=== PATIENT | male | born 1945 | race Caucasian/White ===

== ENCOUNTER → 2024-02-08 12:10 | Outpatient (REF) | payer MEDICARE, OTHER, SELFPAY ==
[2024-02-08 15:36] LABS: % Basophils 2.3 % (0-2); % Eosinophils 2.4 % (0-6); % Immature Granulocytes 0.3 % (0-0.5); % Lymphocytes 31.4 % (20.5-51.1); % Monocytes 8.5 % (1.7-9.3); % Neutrophils 55.1 % (42.2-75.2); Absolute Basophils 0.2 10^3/uL (0-0.2); Absolute Eosinophils 0.2 10^3/uL (0-0.7); Absolute Lymphocytes 2.5 10^3/uL (1.2-3.4); Absolute Monocytes 0.7 10^3/uL (0.1-0.6); Absolute Neutrophils 4.4 10^3/uL (1.4-6.5); Hematocrit 41.2 % (39.0-52.0); Hemoglobin 14.1 g/dL (13.0-18.0); Mean Corp Hgb Conc. 34.2 g/dL (33.0-37.0); Mean Corpuscular Hgb 32.8 pg (27.0-31.0); Mean Corpuscular Volume 95.8 fL (80.0-94.0); Mean Platelet Volume 12.6 fL (7.4-10.4); Nucleated Red Blood Cells % 0 % (-); Platelet Count 173 10^3/uL (130-400); Red Cell Dist. Width 13.2 % (11.5-14.5)
[2024-02-08 15:49] LABS: ALT (SGPT) 18 U/L (0-50); AST (SGOT) 26 U/L (17-59); Albumin 4.3 g/dl (3.5-5.0); Alkaline Phosphatase 65 U/L (38-126); Blood Urea Nitrogen 14 mg/dl (9-20); Calcium 9.6 mg/dl (8.4-10.2); Carbon Dioxide 27 mmol/L (22-30); Chloride 102 mmol/L (98-107); Glucose 104 mg/dl (70-99); Potassium 4.1 mmol/L (3.5-5.1); Sodium 138 mmol/L (135-145); Total Bilirubin 0.6 mg/dl (0.2-1.3); Total Protein 7.5 g/dl (6.3-8.2); eGFR > 60.00
== END ==
LOC: HWRAD 12:10
PROVIDERS: ATTENDING PHYSICIAN Physician Assistant Medical
DX: R10.9 Unspecified abdominal pain (principal); Z87.442 Personal history of urinary calculi; R68.83 Chills (without fever)
CPT/HCPCS: 36415; 74176; 80053; 85025

== ENCOUNTER → 2024-02-26 11:35 | Outpatient (REF) | payer MEDICARE, OTHER, SELFPAY ==
[2024-02-26 12:12] LABS: % Basophils 1.9 % (0-2); % Eosinophils 1.5 % (0-6); % Immature Granulocytes 0.7 % (0-0.5); % Lymphocytes 27.3 % (20.5-51.1); % Monocytes 10.3 % (1.7-9.3); % Neutrophils 58.3 % (42.2-75.2); Absolute Basophils 0.1 10^3/uL (0-0.2); Absolute Eosinophils 0.1 10^3/uL (0-0.7); Absolute Immature Granulocytes 0.1 10^3/uL (0-0.05); Absolute Lymphocytes 2.1 10^3/uL (1.2-3.4); Absolute Monocytes 0.8 10^3/uL (0.1-0.6); Absolute Neutrophils 4.4 10^3/uL (1.4-6.5); Hematocrit 42.4 % (39.0-52.0); Hemoglobin 14.6 g/dL (13.0-18.0); Mean Corp Hgb Conc. 34.4 g/dL (33.0-37.0); Mean Corpuscular Hgb 32.7 pg (27.0-31.0); Mean Corpuscular Volume 94.9 fL (80.0-94.0); Mean Platelet Volume 11.6 fL (7.4-10.4); Nucleated Red Blood Cells % 0 % (-); Platelet Count 192 10^3/uL (130-400); Red Blood Cell Count 4.47 10^6/uL (4.70-6.10); Red Cell Dist. Width 13.1 % (11.5-14.5); White Blood Cell Count 7.6 10^3/uL (4.8-10.8)
[2024-02-26 13:29] LABS: ALT (SGPT) 22 U/L (0-50); AST (SGOT) 33 U/L (17-59); Albumin 4.4 g/dl (3.5-5.0); Alkaline Phosphatase 65 U/L (38-126); Blood Urea Nitrogen 13 mg/dl (9-20); Calcium 9.5 mg/dl (8.4-10.2); Carbon Dioxide 28 mmol/L (22-30); Chloride 102 mmol/L (98-107); Glucose 89 mg/dl (70-99); Potassium 4.2 mmol/L (3.5-5.1); Sodium 135 mmol/L (135-145); Total Bilirubin 0.5 mg/dl (0.2-1.3); Total Protein 7.6 g/dl (6.3-8.2); eGFR > 60.00
[2024-02-26 13:59] LABS: PSA, Total - Screen 0.19 ng/ml (0.0-4.0)
[2024-02-29 16:43] LABS: Amylase 74 U/L (30-110); Lipase 61 U/L (23-300)
== END ==
LOC: REG 11:35
PROVIDERS: ATTENDING PHYSICIAN Physician Assistant Medical
DX: R10.9 Unspecified abdominal pain (principal); R68.83 Chills (without fever); R10.31 Right lower quadrant pain; R50.9 Fever, unspecified; Z87.438 Personal history of other diseases of male genital organs; R06.02 Shortness of breath; Z12.5 Encounter for screening for malignant neoplasm of prostate
CPT/HCPCS: 36415; 71046; 80053; 82150; 83690; 85025; G0103

== ENCOUNTER → 2024-02-29 11:34 | Outpatient (REF) | payer MEDICARE, OTHER, SELFPAY | LOC: RAD 11:34 | PROVIDERS: ATTENDING PHYSICIAN Physician Assistant Medical | DX: R10.9 Unspecified abdominal pain (principal); R10.31 Right lower quadrant pain; R10.30 Lower abdominal pain, unspecified; M54.50 Low back pain, unspecified; Z87.19 Personal history of other diseases of the digestive system; R50.9 Fever, unspecified | CPT/HCPCS: 74177; Q9967 ==

== ENCOUNTER 2024-05-14 18:42 | Emergency (ER) | payer MEDICARE, OTHER, SELFPAY ==
[2024-05-14 18:43] VITALS: BP 144/70
[2024-05-14] MEDS: TYLENOL 650 MG PO (18:55)
[2024-05-14 19:06] LABS: % Basophils 0.7 % (0-2); % Eosinophils 0.4 % (0-6); % Immature Granulocytes 1.2 % (0-0.5); % Lymphocytes 18.7 % (20.5-51.1); % Monocytes 17.9 % (1.7-9.3); % Neutrophils 61.1 % (42.2-75.2); Absolute Basophils 0.1 10^3/uL (0-0.2); Absolute Immature Granulocytes 0.1 10^3/uL (0-0.05); Absolute Lymphocytes 1.3 10^3/uL (1.2-3.4); Absolute Monocytes 1.2 10^3/uL (0.1-0.6); Absolute Neutrophils 4.2 10^3/uL (1.4-6.5); Hematocrit 38.1 % (39.0-52.0); Hemoglobin 13.9 g/dL (13.0-18.0); Mean Corp Hgb Conc. 36.5 g/dL (33.0-37.0); Mean Corpuscular Hgb 32.1 pg (27.0-31.0); Mean Platelet Volume 11.1 fL (7.4-10.4); Nucleated Red Blood Cells % 0 % (-); Platelet Count 90 10^3/uL (130-400); Red Blood Cell Count 4.33 10^6/uL (4.70-6.10); Red Cell Dist. Width 13.8 % (11.5-14.5); White Blood Cell Count 6.9 10^3/uL (4.8-10.8)
[2024-05-14 19:16] LABS: Lactic Acid 0.9 mmol/L (0.7-2.0)
[2024-05-14 19:21] LABS: ALT (SGPT) 40 U/L (0-50); AST (SGOT) 71 U/L (17-59); Albumin 4.1 g/dl (3.5-5.0); Alkaline Phosphatase 83 U/L (38-126); Blood Urea Nitrogen 16 mg/dl (9-20); Calcium 9.1 mg/dl (8.4-10.2); Carbon Dioxide 23 mmol/L (22-30); Chloride 98 mmol/L (98-107); Glucose 107 mg/dl (70-99); Sodium 130 mmol/L (135-145); Total Bilirubin 1.5 mg/dl (0.2-1.3); Total Protein 7.8 g/dl (6.3-8.2); eGFR > 60.00
[2024-05-14 19:29] LABS: COVID-19 Antigen Negative (Negative)
--- NOTE | 2024-05-14 21:20 | ED.GENMED ---
History of Present Illness
General
Chief Complaint: Fever
Source: patient and spouse
Time Seen by Provider: 05/14/24 21:07
History of Present Illness
History of Present Illness:
79-year-old male presents to the emergency room complaining of fever, facial pain and nasal discharge. Patient has been taking Augmentin without improvement. Patient was sent to the emergency by his primary care provider because he continues to
have a fever and patient has a list of allergies making it difficult for her to change his medication. Patient denies any nausea, vomiting, abdominal pain or urinary symptoms.
Past History
Past History
ED Past Medical History: GERD, HTN, Other (Migraines) and Other (Peptic ulcer disease with GI bleed, diverticulitis); Negative CAD
ED Past Surgical History: Orthopedic and Other (Hernia repair)
Social History
Tobacco: Former smoker
Alcohol: None
Personal:
Family History
Family History: Negative Diabetes
Phy Exam
Physical Exam
Physical Exam:
General: Awake, Alert, Oriented X3. No acute distress.
Vitals: unremarkable
Head: Atraumatic
Eyes: Pupils equal, EOMI
Throat: Airway intact, no exudates
Neck: Trachea midline
Lungs: Clear and equal b/l
Heart: Regular rate, no murmurs
Abd: Soft, Nontender, No pulsatile mass
Neuro nonfocal
Skin: Warm, dry, no rash
Extremities: pulses equal b/l, no edema
Course
Orders/Labs/Results
Orders:
Orders
05/14/24 18:52
Acetaminophen [Tylenol] 650 mg .ROUTE .STK-MED ONE
05/14/24 18:54
Acetaminophen [Tylenol] 650 mg PO NOW STA
05/14/24 18:57
COVID-19 Antigen Urgent
Source: Nasal Swab
Complete Blood Count/With Diff Urgent
Comprehensive Metabolic Panel Urgent
Lactic Acid Q4H
Comment: ON ICE, CANCEL 2ND ORDER IF FIRST LACTIC ACID LEVEL <2
Blood Culture Q30M
GAVINO Source: Blood/Venous
Specimen Description:
Comment: FROM 2 SEPARATE SITES
Influenza A+B Rapid Molecular Urgent
GAVINO Source: Nasal Swab
Specimen Description:
05/14/24 21:19
CR Chest - 2 Views Urgent
Comment:
Reason For Exam: fever, cough
05/14/24 21:43
Urinalysis Reflex To Culture Urgent
Date Specimen was Collected: 05/14/24
Time Specimen was Collected: 21:41
Urine Microscopic Reflex Cult Urgent
05/14/24 22:25
Blood Culture Q30M
GAVINO Source: Blood/Venous
Specimen Description:
Comment: FROM 2 SEPARATE SITES
05/14/24 22:50
0.9% Sodium Chloride 500 ml [Nss] 1,000 ml IV ONCE
05/15/24 00:06
CT Head With Iv Contrast Urgent
Comment:
Reason For Exam: persistent fever, severe headache
CT Sinuses With Iv Contrast Urgent
Comment:
Reason For Exam: persistent fever, severe headache
05/15/24 01:09
Acetaminophen [Tylenol] 650 mg PO NOW STA
Abnormal Lab Results
05/14/24 05/14/24
18:57 21:43
RBC 4.33 L 10^6/uL
(4.70-6.10)
Hct 38.1 L %
(39.0-52.0)
MCH 32.1 H pg
(27.0-31.0)
Plt Count 90 L 10^3/uL
(130-400)
MPV 11.1 H fL
(7.4-10.4)
Abs Immat Gran (auto) 0.1 H 10^3/uL
(0-0.05)
Absolute Monos (auto) 1.2 H 10^3/uL
(0.1-0.6)
Immature Gran % 1.2 H %
(0-0.5)
Lymphocytes % 18.7 L %
(20.5-51.1)
Monocytes % 17.9 H %
(1.7-9.3)
Sodium 130 L mmol/L
(135-145)
Glucose 107 H mg/dl
(70-99)
Total Bilirubin 1.5 H mg/dl
(0.2-1.3)
AST 71 H U/L
(17-59)
Urine Ketones Trace A
(Negative)
Ur Occult Blood Reflex 1+ A
(Negative)
Leukocyte Esterase Rfl Trace A
(Negative)
Urine RBC 3-6 A /HPF
(0-2)
Urine Bacteria (Reflex) Few A
(Negative)
05/14/24 18:57
05/14/24 18:57
Vital Signs
Initial and Last Documented VS:
Initial Vital Signs
Temp Pulse Resp BP Pulse Ox
102.7 F H 92 20 144/70 95
05/14/24 18:43 05/14/24 18:43 05/14/24 18:43 05/14/24 18:43 05/14/24 18:43
Last Documented Vital Signs
Temp Pulse Resp BP Pulse Ox
103.0 F H 88 16 141/62 93
05/15/24 01:08 05/14/24 21:55 05/14/24 21:55 05/14/24 21:55 05/14/24 22:01
MDM/Problems Addressed
Differential Diagnosis Includes:
COVID, influenza, sinusitis, complicated sinusitis with osteomyelitis or other progression
MDM/Problems Addressed:
Patient presents with persistent fever and headache, facial pain. He has been taking Augmentin but has not been improving. Labs show a normal white blood cell count. Chemistries are essentially unremarkable. Urinalysis does not show evidence for
infection. COVID and flu test were negative. Given persistent high fever imaging was obtained not so much to prove the patient had sinusitis but to exclude evidence of extension complication. Patient radiology identifies evidence of sinusitis but
does not see any evidence for bony erosion, cellulitis or other complication. CT of the brain shows no abnormalities. Patient concerned about drug allergies. He is documented allergies are not true medication allergies but perceived adverse
reactions. He associates several antibiotics with having GI bleeding. He has Levaquin listed as an allergy but this caused heart flutter. He has tolerated Cipro in the past. Therefore we will DC his Augmentin and start moxifloxacin.
*Radiology
Radiology exam reviewed: other (Vision radiology report)
*Pulse Oximetry
Patient hypoxic: no
*Critical Care Note
Total Time (30-74mins, 75-104mins- exclusive of procedures): Not Applicable
ED Attending Note
-
Portions of this chart may have been created with voice recognition software.� Occasional wrong word or��sound alike� substitutions may have occurred due to the inherent limitations of voice recognition software.
Discharge Plan
Departure
Patient Disposition: Home (Routine Discharge)
Date of Disposition: 05/15/24
Time of Disposition: 01:29
Patient with high blood pressure during this ER visit?: No
Condition: Good
Discharge Problem:
Acute bacterial sinusitis, Fever
Instructions: Fever, Adult (DC), Sinusitis, Adult ED
Prescriptions:
New
moxifloxacin 400 mg tablet
400 mg PO DAILY 7 Days Qty: 7 0RF
No Action
diltiazem HCl 180 MG capsule,extended release 24hr
180 mg PO DAILY
saw palmetto 450 MG capsule
450 mg PO BID
sucralfate 1 GRAM tablet
1 g PO ACHS
cyanocobalamin (vitamin B-12) 1,000 MCG tablet
1,000 mcg PO DAILY
tramadol 50 MG tablet
50 mg PO Q6HPRN PRN (Reason: PAIN)
acetaminophen [Tylenol Extra Strength] 500 MG tablet
1,000 mg PO Q6HPRN PRN (Reason: PAIN)
esomeprazole magnesium [Nexium] 40 MG capsule,delayed release(DR/EC)
40 mg PO DAILY@0200
albuterol sulfate 1 PUFF HFA aerosol inhaler
2 puff inhalation R Q4HPRN PRN (Reason: ASTHMA)
fluticasone propionate 1 SPRAY spray,suspension
2 spray intranasal DAILY
finasteride 5 MG tablet
5 mg PO DAILY
multivitamin with folic acid [Tab-A-Frank] 1 TABLET tablet
1 tab PO DAILY
levothyroxine [Tirosint] 50 MCG capsule
50 mcg PO DAILY
polyethylene glycol 3350 17 GRAMS powder in packet
17 grams PO DAILYPRN PRN (Reason: constipation) Qty: 1 0RF
ibuprofen 200 MG tablet
400 - 600 mg PO Q6HPRN PRN (Reason: moderate pain) Qty: 1 0RF
ciprofloxacin HCl 250 MG tablet
250 mg PO BID Qty: 19 0RF
Referrals:
Tati Werner PA-C [Family Provider] -
Sandra Rees MD [Active] -
Activity Restrictions/Additional Instructions:
You CT scan shows no complications from sinusitis. We will change your antibiotics to moxifloxin which is similar to cipro which you have tolerated.
Interventions
Interventions:
*Risk Screen - Suicide Last Done: 05/14/24 18:43
*General Assessment Last Done: 05/14/24 18:43
*Neglect/Abuse Screening Last Done: 05/14/24 18:43
ED- Fall Risk Assessment Last Done: 05/14/24 22:01
*ED COVID-19 Vaccine History Last Done: 05/14/24 22:01
ED- Neurological Assessment Last Done: 05/14/24 22:01
ED-Skin Assessment Last Done: 05/14/24 22:01
Discharge Date and Time
Print Language: BRAZILIAN
[2024-05-14 21:55] VITALS: BP 141/62
[2024-05-14 22:01] VITALS: BMI 27.2
[2024-05-14 22:17] LABS: Urine Albumin Trace (Neg - Trace); Urine Bilirubin Negative (Negative); Urine Character Clear (Clear); Urine Color Yellow; Urine Glucose Negative (Negative); Urine Ketone Trace (Negative); Urine Leukocyte Trace (Negative); Urine Nitrite Negative (Negative); Urine Occult Blood 1+ (Negative); Urine Urobilinogen Negative (Neg - 1+)
[2024-05-14 22:30] LABS: Urine Bacteria Few (Negative); Urine White Cell 0-2 /HPF (0-5)
[2024-05-14] MEDS: NSS 1000 IV (22:50)
[2024-05-15] MEDS: TYLENOL 650 MG PO (01:59)
[2024-05-15] MEDS: CIPRO 500 MG PO (02:14)
== END 2024-05-15 02:27 | disposition home or self-care (01) ==
LOC: EMR 18:42
PROVIDERS: Emergency Medicine; EMERGENCY PHYSICIAN Emergency Medicine; FAMILY PHYSICIAN Physician Assistant Medical
DX: J01.90 Acute sinusitis, unspecified (principal); R50.9 Fever, unspecified; R51.9 Headache, unspecified; K21.9 Gastro-esophageal reflux disease without esophagitis; I10 Essential (primary) hypertension; Z87.11 Personal history of peptic ulcer disease; Z11.52 Encounter for screening for COVID-19; Z87.891 Personal history of nicotine dependence
CPT/HCPCS: 99284; 96360; 70460; 70487; 71046; 80053; 81003; 81015; 83605; 85025; 87040; 87502; 87811; Q9967

== ENCOUNTER 2024-05-19 12:21 | Inpatient (IN) | payer MEDICARE, OTHER, SELFPAY ==
[2024-05-17] VITALS (11 sets, daily range): BP systolic 103–144; BP diastolic 47–91; BMI 27.9; BMI 27.7
--- NOTE | 2024-05-17 09:39 | ED.GENMED ---
History of Present Illness
General
Chief Complaint: Fever
Source: patient
Exam Limitations: none
Time Seen by Provider: 05/17/24 09:32
Nursing documentation reviewed up to this point in time: agreed with
History of Present Illness
History of Present Illness:
Patient is an 79-year-old male who presents the ER for evaluation.
Patient was seen here Sunday 3 days ago for evaluation. He had sinus symptoms and initially was taking Augmentin prescribed by family doctor without relief. On Sunday in the ER he had a full workup including blood work COVID flu testing
chest x-ray and a CAT scan of the sinuses. CAT scan did show sinusitis he was discharged on moxifloxacin and Augmentin was stopped. Since then he has not improved. He now however has a lot of abdominal discomfort and urinary burning with
dribbling. He also has left-sided abdominal pain and does have history of diverticulitis. reports he is very weak.
Past History
Past History
ED Past Medical History: GERD, HTN, Other (Migraines) and Other (Peptic ulcer disease with GI bleed, diverticulitis); Negative CAD
ED Past Surgical History: Orthopedic and Other (Hernia repair)
Social History
Tobacco: Former smoker
Alcohol: None
Personal:
Family History
Family History: Negative Diabetes
Review of Systems
Review of Systems
Allergies reviewed?: Yes
Constitutional: Reports fatigue
EENT: Reports no symptoms
Respiratory: Reports no symptoms
Cardiac: Reports no symptoms
ABD/GI: Reports abdominal pain; Denies nausea or vomiting
: Reports dysuria
Musculoskeletal: Reports no symptoms
Skin: Reports no symptoms
Neurological: Reports no symptoms
Psychiatric: Reports no symptoms
Phy Exam
General Physical Exam
General Presentation: no apparent distress
General age: appears stated age
General Skin: warm and dry
General Habitus: normal
General Mental: alert
General Hydration: appears well hydrated
Cardiovascular Exam
Cardiovascular Exam: tachycardia
Pulmonary Exam
Pulmonary Exam: lungs clear and no respiratory distress
Neurological Exam
Neurological Exam: alert and oriented x3
Musculoskeletal Exam
Musculoskeletal Exam: full ROM
Skin Exam
Skin Exam: normal color and warm/dry
Psychiatric Exam
Psychiatric Exam: normal mood/affect
Course
Orders/Labs/Results
Orders:
Orders
05/17/24 09:49
IV Insert/Care/Rem.- Treatment PRN
05/17/24 09:50
CT Abd/Pel (IV only)-DH only Urgent
Comment:
Reason For Exam: left sided abd pain and also uti s/s /fever
05/17/24 10:07
0.9% Sodium Chloride 1000 ml [Nss] 1,000 ml IV BOLUS
Acetaminophen [Tylenol] 650 mg PO NOW STA
05/17/24 10:12
Acetaminophen Urgent
Complete Blood Count/With Diff Urgent
Comprehensive Metabolic Panel Urgent
Lactic Acid Q4H
Comment: CANCEL 2nd LACTIC ACID IF 1st LACTIC ACID IS LESS THAN 2
Blood Culture Q30M
GAVINO Source: Blood/Venous
Specimen Description:
05/17/24 12:06
Urinalysis Reflex To Culture Urgent
Date Specimen was Collected: 05/17/24
Time Specimen was Collected: 10:25
Urine Microscopic Reflex Cult Urgent
Blood Culture Q30M
GAVINO Source: Blood/Venous
Specimen Description:
05/17/24 14:39
Admit/Transfer Patient As Directed
Co-Sign Provider:
Level of Care: Observation services
Assign to:: Medical/Surgical
Physician / Group: Thelma
Diagnosis: hyponatrmia
05/17/24 15:35
Lactic Acid Q4H
Comment: CANCEL 2nd LACTIC ACID IF 1st LACTIC ACID IS LESS THAN 2
05/17/24 16:25
Compression Sleeves [Pneumatic Compression Sleeves] As Directed
Type: Knee high
DX Deep Vein Thrombosis Video Routine
Abnormal Lab Results
05/17/24 05/17/24
10:12 12:06
RBC 3.61 L 10^6/uL
(4.70-6.10)
Hgb 11.4 L g/dL
(13.0-18.0)
Hct 31.3 L %
(39.0-52.0)
MCH 31.6 H pg
(27.0-31.0)
Plt Count 75 L 10^3/uL
(130-400)
MPV 12.2 H fL
(7.4-10.4)
Abs Immat Gran (auto) 0.1 H 10^3/uL
(0-0.05)
Absolute Lymphs (auto) 0.9 L 10^3/uL
(1.2-3.4)
Absolute Monos (auto) 0.9 H 10^3/uL
(0.1-0.6)
Immature Gran % 1.0 H %
(0-0.5)
Lymphocytes % 18.1 L %
(20.5-51.1)
Monocytes % 17.7 H %
(1.7-9.3)
Sodium 128 L mmol/L
(135-145)
Carbon Dioxide 20 L mmol/L
(22-30)
Glucose 188 H mg/dl
(70-99)
Lactic Acid 2.1 H mmol/L
(0.7-2.0)
Total Bilirubin 1.6 H mg/dl
(0.2-1.3)
AST 132 H U/L
(17-59)
ALT 74 H U/L
(0-50)
Albumin 3.2 L g/dl
(3.5-5.0)
Ur Occult Blood Reflex 2+ A
(Negative)
Acetaminophen < 10 L ug/ml
(10-30)
05/17/24 10:12
05/17/24 10:12
Vital Signs
Initial and Last Documented VS:
Initial Vital Signs
Temp
99.5 F
05/17/24 09:24
Last Documented Vital Signs
Temp Pulse Resp BP Pulse Ox
102.9 F H 96 18 129/63 94
05/18/24 22:57 05/18/24 22:57 05/18/24 22:57 05/18/24 22:57 05/18/24 22:57
MDM/Problems Addressed
MDM/Problems Addressed:
Patient is an 79-year-old male who has been on antibiotics for sinus infection. He was initially placed on Augmentin and was seen here in the ER May 14 had sinus CAT scan and antibiotic was switched to moxifloxacin. He continues to have fever and
now feels weak. He now feels some burning with urination. Patient did arrive with a temp of 101.9 was mildly tachycardic. He has a normal white count lactic 2.1. I did review CAT scan from May 14 with does show moderate sinusitis. With
complaints now of burning with urination urinalysis was done and unremarkable. CAT scan of abdomen was also ordered to check for other source of infection. no obvious source of infection or obvious findings on CAT scan. LFTs minimally elevated.
Patient febrile however with a normal white count low platelets low sodium. will require admission for further work up of s/s/fever/weakness.
*Radiology
Radiology exam reviewed: radiology read reviewed
*Pulse Oximetry
Patient hypoxic: no
*Critical Care Note
Total Time (30-74mins, 75-104mins- exclusive of procedures): Not Applicable
ED Attending Note
-
Portions of this chart may have been created with voice recognition software.� Occasional wrong word or��sound alike� substitutions may have occurred due to the inherent limitations of voice recognition software.
Discharge Plan
Departure
Patient Disposition: Admit
Date of Disposition: 05/17/24
Time of Disposition: 13:35
Admit to: Med/Surg
Admit to doctor: hospitalist
Presentation/result/management discussed w/ accepting MD/DO: Hospitalist
Patient with high blood pressure during this ER visit?: No
Condition: Fair
Covid-19: Not Applicable
Discharge Problem:
Fever, Acute hyponatremia, Sinusitis
Interventions
Interventions:
*Risk Screen - Suicide Last Done: 05/17/24 16:21
*General Assessment Last Done: 05/17/24 10:30
*Neglect/Abuse Screening Last Done: 05/17/24 10:30
*ED COVID-19 Vaccine History Last Done: 05/17/24 16:21
*Nursing Disposition Last Done: 05/17/24 16:21
ED- Neurological Assessment Last Done: 05/17/24 10:30
ED-Skin Assessment Last Done: 05/17/24 10:30
Discharge Date and Time
Discharge Date/Time: 05/17/24 16:22
[2024-05-17] MEDS: NSS 1000 IV ×4 (10:19→22:25)
[2024-05-17] MEDS: TYLENOL 650 MG PO ×3 (10:21→23:53)
[2024-05-17 10:28] LABS: % Basophils 0.6 % (0-2); % Eosinophils 0.2 % (0-6); % Lymphocytes 18.1 % (20.5-51.1); % Monocytes 17.7 % (1.7-9.3); % Neutrophils 62.4 % (42.2-75.2); Absolute Immature Granulocytes 0.1 10^3/uL (0-0.05); Absolute Lymphocytes 0.9 10^3/uL (1.2-3.4); Absolute Monocytes 0.9 10^3/uL (0.1-0.6); Absolute Neutrophils 3.1 10^3/uL (1.4-6.5); Hematocrit 31.3 % (39.0-52.0); Hemoglobin 11.4 g/dL (13.0-18.0); Mean Corp Hgb Conc. 36.4 g/dL (33.0-37.0); Mean Corpuscular Hgb 31.6 pg (27.0-31.0); Mean Corpuscular Volume 86.7 fL (80.0-94.0); Mean Platelet Volume 12.2 fL (7.4-10.4); Nucleated Red Blood Cells % 0 % (-); Platelet Count 75 10^3/uL (130-400); Red Blood Cell Count 3.61 10^6/uL (4.70-6.10); Red Cell Dist. Width 14.2 % (11.5-14.5)
[2024-05-17 10:37] LABS: Lactic Acid 2.1 mmol/L (0.7-2.0)
[2024-05-17 11:01] LABS: ALT (SGPT) 74 U/L (0-50); AST (SGOT) 132 U/L (17-59); Albumin 3.2 g/dl (3.5-5.0); Alkaline Phosphatase 76 U/L (38-126); Blood Urea Nitrogen 13 mg/dl (9-20); Calcium 8.4 mg/dl (8.4-10.2); Carbon Dioxide 20 mmol/L (22-30); Chloride 101 mmol/L (98-107); Glucose 188 mg/dl (70-99); Potassium 3.8 mmol/L (3.5-5.1); Sodium 128 mmol/L (135-145); Total Bilirubin 1.6 mg/dl (0.2-1.3); Total Protein 6.6 g/dl (6.3-8.2); eGFR > 60.00
[2024-05-17 12:39] LABS: Urine Albumin Trace (Neg - Trace); Urine Bilirubin Negative (Negative); Urine Character Clear (Clear); Urine Color Yellow; Urine Glucose Negative (Negative); Urine Ketone Negative (Negative); Urine Leukocyte Negative (Negative); Urine Nitrite Negative (Negative); Urine Occult Blood 2+ (Negative); Urine Urobilinogen Negative (Neg - 1+)
[2024-05-17 12:52] LABS: Urine Red Blood Cell 0-2 /HPF (0-2)
[2024-05-17 12:53] LABS: Urine Hyaline Cast 0-2 /LPF (0-2); Urine Squamous Cell 0-2 /LPF (Few)
--- NOTE | 2024-05-17 15:39 | HPS.HSE ---
Family Physician
-
Family Physician: Tati Werner
Chief Complaint
-
Fever, chill and cough
History of Present Illness
79-year-old male with history of hypertension, returned back to the ER as she was here on May 14 for the same symptoms he been complaining about facial pain and pressure and purulent nasal discharge since last Sunday, he was diagnosed with
sinusitis and the different sinuses, and discharged on amoxicillin eventually change on moxifloxacin without much relief.
Admitted symptoms continued to get worse and having more frequent fever and chills and associated with dry cough,, however reported, had couple loose stool 2 days ago which is resolved also complaining of dysuria without any hematuria.
Denies weakness or numbness in extremity, although feels weak and lousy and lethargic
Admits poor appetite, also complains of upper abdominal pain worse with coughing.
Is lethargic in the ER was oriented x 3 hold appropriate conversation, his at the bedside in the ER the temperature is 101. Lactic acid 2.1.
LFTs mildly elevated he admitted is been taking Tylenol regularly.
Denies sick contacts or recent travel.
Resume IV fluid in ER.
Medical History
Past Medical History
Past Medical History: Reports Other
Past Surgical History: Reports Other
Additional Past Surgical History:
Past medical history reviewed:
NSAID use peptic ulcer disease and GI bleed
Asthma
Diverticulitis
Chronic back pain
Hypertension
Asthma
Surgical history:
Right inguinal hernia repair
Lower back surgery
Sinus surgery in May 1996
Colonoscopy
EGD and stomach biopsy
Laparoscopic cholecystectomy
Social history: lives with the independently, denies smoking or alcohol use.
Family history: Reviewed and noncontributory
Social History
Unable to obtain full social history at this time due to: Other
Family History
Family History: Other
Allergies / Home Medications
Allergies reflects when Allergies were last updated in [facility].
Home Medications with original date entered in [facility]
Allergy/Medication List:
Allergies
Allergy/AdvReac Type Severity Reaction Status Date / Time
cefaclor [From Ceclor] Allergy GIB,ARM Verified 05/17/24 09:26
PAIN
levofloxacin [From Levaquin] Allergy 'HEART Verified 05/17/24 09:26
FLUTTERS'
loracarbef [From Lorabid] Allergy GIB,ARM Verified 05/17/24 09:26
PAIN
tetracycline [Tetracycline] Allergy GIB,ARM Verified 05/17/24 09:26
PAIN
levothyroxine sodium AdvReac GI UPSET Verified 05/17/24 09:26
[From Synthroid]
meperidine HCl [From Demerol] AdvReac VOMITING Verified 05/17/24 09:26
Home Medications
diltiazem HCl 180 mg capsule,extended release 24 hr 180 mg PO DAILY 08/17/12
saw palmetto 450 mg capsule 450 mg PO DAILY 08/25/16
acetaminophen 500 mg tablet (Tylenol Extra Strength) 1,000 mg PO Q6HPRN PRN mild pain 12/14/20
albuterol sulfate 90 mcg/actuation aerosol inhaler 2 puff inhalation R Q4HPRN PRN sob/wheezing 12/14/20
cyanocobalamin (vitamin B-12) 1,000 mcg tablet 1,000 mcg PO DAILY 12/14/20
finasteride 5 mg tablet 5 mg PO DAILY 12/14/20
fluticasone propionate 50 mcg/actuation nasal spray,suspension 2 spray intranasal DAILY 12/14/20
multivitamin with folic acid 400 mcg tablet (Tab-A-Frank) 1 tab PO DAILY 12/14/20
sucralfate 1 gram tablet 1 g PO ACHSPRN PRN stomach issues/when on antibiotics 12/14/20
levothyroxine 88 mcg capsule (Tirosint) 88 mcg PO DAILY 05/17/24
moxifloxacin 400 mg tablet 400 mg PO DAILY@1330 05/17/24
pantoprazole 40 mg tablet,delayed release 40 mg PO DAILY 05/17/24
Review of Systems
-
A 12 point ROS was completed and negative except as noted: Yes
Physical Exam
Vital Signs
Vital Signs
Temp Pulse Resp BP Pulse Ox
103 F H 96 17 141/71 96
05/17/24 15:38 05/17/24 15:15 05/17/24 15:15 05/17/24 15:00 05/17/24 14:00
Physical exam:
General: Awake, alert and oriented x3, lethargic and tired looking, not in distress and holds appropriate conversation.
HEENT: Facial tenderness appreciated no active discharge, ecchymosis or bruising, moist lips, tongue and mucous membrane.
Eyes: No discharge or red conjunctiva, no nystagmus, pupils are reactive and equal
Neck:Supple, no JVD no bruit no goiter.
Respiratory: Normal AP contour and diameter, normal chest wall movement, normal respiratory effort, no respiratory distress,
Lungs: Good air entry bilaterally, no wheezing or rhonchi, no rales or crackles
Heart: S1, S2 regular, normal rate, no added sound.
Gastrointestinal: Positive bowel sounds, soft, nontender, no guarding or rigidity or organomegaly
Musculoskeletal: , no chest wall abnormality or tenderness. All joints and extremities have good range of motion, no muscle tenderness or any joint swelling or tenderness.
Extremities: No pitting edema, good peripheral pulses, good range of motion
Skin: Warm and dry, no ulceration, normal color.
Neurological: Awake, alert and oriented x3, normal mentation,, speech clear and comprehensive, good muscle tone, normal sensory and motor function
Psychiatric: Normal mood, normal thought and judgment, normal affect,
Physical Exam
General: Other
Laboratory Results
-
05/17/24 10:12
05/17/24 10:12
Laboratory Results
Lactic Acid 2.1 mmol/L (0.7-2.0) H 05/17/24 10:12
Total Bilirubin 1.6 mg/dl (0.2-1.3) H 05/17/24 10:12
AST 132 U/L (17-59) H 05/17/24 10:12
ALT 74 U/L (0-50) H 05/17/24 10:12
Alkaline Phosphatase 76 U/L (38-126) 05/17/24 10:12
CT abdominal pelvis:
Thin linear density within the anterior aspect of the visualized right lower lobe of the lung, compatible with linear scarring or atelectasis.
No evidence for urinary tract calculi.
Right renal cysts are present.
Status post cholecystectomy with no evidence for biliary ductal dilation.
Two stable small low-density hepatic lesions, compatible with cysts or hemangiomas.
Colonic diverticula with no convincing CT evidence for diverticulitis. No evidence for bowel obstruction or free intraperitoneal air.
Bony degenerative changes as described.
Data Reviewed
-
CT Scan: Report Reviewed by me, Discussed with Patient and Discussed with Family
Lab Data: Labs Reviewed by me, Discussed with Patient and Discussed with Family
Old Records: Reviewed
Impression/Plan
-
IMPRESSION:
79-year-old male presented to the hospital for the second time in 3 days still complaining of the facial pain with nasal discharge now cough and congestion and fever he was diagnosed and treated on May 17 here in the ER with sinusitis despite
giving amoxicillin then changed to moxifloxacin 1 he has not much improvement overall feels better.
Acute sepsis: Temperature as high as 101 and lactic acidosis and encephalopathy, sinusitis versus progression to pneumonia while other causes may need to be considered including viral hepatitis but unlikely.
Concern for pneumonia
Sinusitis with a felt outpatient treatment
Elevated LFTs, possible Tylenol and sepsis related while final pathology panel could be possible, CT abdomen pelvis showed no acute abnormality status postcholecystectomy.
Hyponatremia
Mild protein caloric malnutrition albumin is 3.2
Dysuria likely secondary to prostatism his UA is clean and there is no hematuria
Hypertension
History of peptic ulcer disease in the past
PLAN:
All managed per sepsis protocol
Blood culture collected
Get a chest x-ray to complete the workup
Cover the broad-spectrum embolic with vancomycin and Zosyn for now antibiotic could be de-escalated according to finding
If not improvement still symptomatic then consider ID consult and I will repeat sinus CT and may need ENT accordingly.
Monitor vital sign
Give another liter of fluid over 2 hours continue normal saline 100 mill per hour
Because of the elevated LFT I will develop otitis panel to rule out hepatitis,
Repeat LFT
Will give him Tylenol every 6 hours as needed and I will get a Tylenol level it was elevated. Tylenol
Fortunately because of the fever we need antipyretic such as Tylenol 650 every 6 hours and I will add Toradol IV try to avoid oral NSAIDs because of history of peptic ulcer disease in the past
Continue PPI
Close monitoring for any signs symptom of ulcer or GI bleed.
All discussed with the patient and the in detail expressed understanding
CODE STATUS full code
DVT prophylaxis Lovenox
[2024-05-17] MEDS: TORADOL 15 MG IV (15:41)
[2024-05-17 15:50] LABS: Lactic Acid 1.1 mmol/L (0.7-2.0)
[2024-05-17 17:03] LABS: Acetaminophen < 10 ug/ml (10-30)
[2024-05-17] MEDS: ProAIR HFA INHALER 2 PUFF INH (17:24)
[2024-05-17] MEDS: ZOSYN 50 IV ×2 (17:26→22:08)
[2024-05-17] MEDS: LOVENOX 40 MG SC (17:27)
[2024-05-17] MEDS: VANCOCIN 540 MG IV (17:33)
--- NOTE | 2024-05-17 20:00 | PTCARENOTE ---
Pt. admitted from E.D., AAO x 3, IVF's and antibiotics infusing, pt. having temps, treated with Tylenol, call santoyo within reach.
--- NOTE | 2024-05-17 22:40 | PTCARENOTE ---
Pt. has temp 101.2, chilly, rigors, gave multiple warm blankets, Tylenol not due yet, will give when due.
--- NOTE | 2024-05-17 23:14 | PHA.VAN.IN ---
Assessment
- Assessment
Renal Function: Appears similar to baseline
Maximum Temperature: 103F
Concomitant Antimicrobials: Piperacillin/tazobactam
AUC Dosing Plan
- Dosing Variables
Dosing Weight (kg): 82.7
Dosing CrCl (ml/min): 63
Vd coefficient (L/kg): 0.7
- Empiric Dosing
Initial / Loading Dose: Vancomycin 2000mg given 05/17 at 1730
Maintenance Regimen: Vancomycin 750mg IV Q12h
Estimated AUC (mcg*h/mL): 470
Estimated Peak (mcg*h/mL): 26.3
Estimated Trough (mcg/ml): 14.1
Estimated Half Life (H): 12.2
- Monitoring
No levels ordered at this time: Will order levels prior to steady state.
MRSA Screen: Ordered per protocol
Pharmacokinetics Vancomycin I
- -
Patient Age: 79
Patient Sex: Male
Vancomycin Day #: 1
Indication: Pulmonary/Respiratory
Requesting Provider: Dr. Renee
Pertinent Antimicrobial Allergies:
cefaclor [From Ceclor] Allergy (Verified 05/17/24 09:26)
GIB,ARM PAIN
levofloxacin [From Levaquin] Allergy (Verified 05/17/24 09:26)
'HEART FLUTTERS'
loracarbef [From Lorabid] Allergy (Verified 05/17/24 09:26)
GIB,ARM PAIN
tetracycline [Tetracycline] Allergy (Verified 05/17/24 09:26)
GIB,ARM PAIN
Height / Weight:
Height 5 ft 8 in
Actual Weight 82.735 kg
Pertinent Past Medical History: Pt took amoxicillin and moxifloxacin [employer].
- Vital Signs / Lab Results
Temp Pulse Resp BP Pulse Ox
101.2 F H 101 16 140/66 96
05/17/24 22:35 05/17/24 22:35 05/17/24 22:35 05/17/24 22:35 05/17/24 22:35
Lab Results - Hematology
05/17/24
10:12
WBC 5.0
Lab Results - Chemistry
05/17/24
10:12
BUN 13
Creatinine 0.9
Albumin 3.2 L
05/17/24 05/17/24 05/17/24
10:12 15:35 16:25
Lactic Acid 2.1 H 1.1 Cancelled
05/17/24
20:25
Lactic Acid Cancelled
Lab Results - Urine
05/17/24
12:06
Urine Nitrite (Reflex) Negative
Leukocyte Esterase Rfl Negative
Urine WBC (Reflex) 3-5
Ur Squamous Epith Cells 0-2
[2024-05-18 01:50] LABS: Lactic Acid 0.9 mmol/L (0.7-2.0)
[2024-05-18] MEDS: ZOSYN 50 IV ×4 (04:17→21:25)
[2024-05-18] MEDS: VANCOCIN 150 IV ×2 (05:18→17:29)
[2024-05-18] MEDS: NON-FORMULARY ITEM 88 MCG PO (06:02)
[2024-05-18 06:56] LABS: Hematocrit 31.7 % (39.0-52.0); Hemoglobin 11.1 g/dL (13.0-18.0); Mean Corpuscular Hgb 31.7 pg (27.0-31.0); Mean Corpuscular Volume 90.6 fL (80.0-94.0); Red Cell Dist. Width 14.5 % (11.5-14.5); White Blood Cell Count 4.9 10^3/uL (4.8-10.8)
[2024-05-18 07:03] LABS: Lactic Acid 1.5 mmol/L (0.7-2.0)
[2024-05-18 07:06] VITALS: BP 130/61
[2024-05-18 07:20] LABS: ALT (SGPT) 102 U/L (0-50); AST (SGOT) 164 U/L (17-59); Alkaline Phosphatase 92 U/L (38-126); Blood Urea Nitrogen 14 mg/dl (9-20); Calcium 7.9 mg/dl (8.4-10.2); Carbon Dioxide 22 mmol/L (22-30); Chloride 105 mmol/L (98-107); Estimated Creatinine Clearance 57 ml/min; Glucose 102 mg/dl (70-99); Sodium 133 mmol/L (135-145); Total Bilirubin 2.2 mg/dl (0.2-1.3); Total Protein 6.5 g/dl (6.3-8.2); eGFR > 60.00
[2024-05-18 07:26] LABS: Potassium 3.7 mmol/L (3.5-5.1)
[2024-05-18] MEDS: CARDIZEM CD 180 MG PO (08:49)
[2024-05-18] MEDS: PROTONIX 40 MG PO (08:49)
[2024-05-18] MEDS: PROSCAR 5 MG PO (08:50)
[2024-05-18] MEDS: NON-FORMULARY ITEM 1 SPRAY NASAL (08:51)
--- NOTE | 2024-05-18 09:43 | PHA.VAN.FU ---
Vancomycin Assessment / Plan
- Assessment
Renal Function: Stable
WBC's are: Stable
In the past 24 hrs, patient has been: Febrile (101.8 - 05/18)
Concomitant Antimicrobials: piperacillin/tazobactam
- Dosing Plan
Continue: vanc 750 mg q12h - first dose 05/18 0600 after 2000 mg LD 05/17
- Monitoring Plan
No level(s) ordered at this time: consider levels when pt nears steady state ( after 4th dose - richard dose 05/19)
- Follow Up
Pharmacy will continue to follow.
Vancomycin Follow UP
- -
Patient Age: 79
Patient Sex: Male
Vancomycin Day #: 2
Indication: Pulmonary/Respiratory
Requesting Provider: Dr. Renee
Pertinent Antimicrobial Allergies:
cefaclor [From Ceclor] Allergy (Verified 05/17/24 09:26)
GIB,ARM PAIN
levofloxacin [From Levaquin] Allergy (Verified 05/17/24 09:26)
'HEART FLUTTERS'
loracarbef [From Lorabid] Allergy (Verified 05/17/24 09:26)
GIB,ARM PAIN
tetracycline [Tetracycline] Allergy (Verified 05/17/24 09:26)
GIB,ARM PAIN
Height / Weight:
Height 5 ft 8 in
Actual Weight 82.735 kg
Pertinent Past Medical History: Pt took amoxicillin and moxifloxacin [employer].
- Vital Signs / Lab Results
Temp Pulse Resp BP Pulse Ox
101.8 F H 89 16 130/61 95
05/18/24 07:06 05/18/24 07:06 05/18/24 07:06 05/18/24 07:06 05/18/24 07:06
Lab Results - Hematology
05/17/24 05/18/24
10:12 06:24
WBC 5.0 4.9
Lab Results - Chemistry
05/17/24 05/18/24
10:12 06:24
BUN 13 14
Creatinine 0.9 1.0
Estimated Creat Clear 57
Albumin 3.2 L 3.0 L
05/17/24 05/17/24 05/17/24
10:12 15:35 16:25
Lactic Acid 2.1 H 1.1 Cancelled
05/17/24 05/18/24 05/18/24
20:25 01:27 06:24
Lactic Acid Cancelled 0.9 1.5
Lab Results - Urine
05/17/24
12:06
Urine Nitrite (Reflex) Negative
Leukocyte Esterase Rfl Negative
Ur Squamous Epith Cells 0-2
[2024-05-18 09:55] LABS: Platelet Count 59 10^3/uL (130-400)
[2024-05-18 09:56] LABS: Mean Platelet Volume 12.1 fL (7.4-10.4)
[2024-05-18 09:59] LABS: Absolute Neutrophils -Man Diff 2.7 10^3/uL (1.4-6.5); Atypical Lymphocytes 5 %; Band Neutrophils 0 % (0-3); Lymphocytes 35 % (20-51); Monocytes 3 % (2-9); Segmented Neutrophils 56 % (42-75)
[2024-05-18 10:01] LABS: Normal RBC Morphology No; Platelets Checked YES
[2024-05-18 10:02] LABS: Hypochromasia Slight; Nucleated Red Blood Cells 1 (-)
[2024-05-18 10:08] LABS: Total Cells Counted 100
[2024-05-18] MEDS: TYLENOL 650 MG PO ×3 (10:55→22:36)
--- NOTE | 2024-05-18 10:58 | W.PN.HOSP.TC ---
Today's Communication/Plan
-
ENT consult
ID consult
Assessment / Plan
Assessment / Plan
Gen-AAOx3, NAD
HEENT-NC, AT, anicteric, clear oral mm
Neck-supple
CV-reg, no M, +S1/S2
Lungs-clear B/L
Abd-soft, NT, ND
Ext-no edema
Musculoskeletal-no cyanosis, clubbing
Skin-warm and dry
Neuro-grossly non-focal
Psych-calm, cooperative
Sepsis -due to acute bilateral sinusitis. Ongoing fevers despite antibiotic therapy. Consult ENT given history of ENT surgery in the past, concern for anatomic obstruction. CT of the sinuses noted, moderate bilateral frontal and ethmoid and mild
bilateral maxillary sinusitis despite bilateral medial antrostomies. Consult ID. Currently on IV Zosyn, vancomycin.
No evidence of pneumonia. Chest x-ray clear.
Dysuria -with unremarkable urinalysis. Suspect due to prostatic disease, BPH. Did not tolerate tamsulosin reportedly in the past. On Proscar therapy. Will need outpatient follow-up with urology.
Hyponatremia -improving, 133.
Elevated LFTs -unclear if related to acetaminophen overuse versus other causes. Viral hepatitis panel pending. Check GGT, LDH, direct bilirubin.
Acute thrombocytopenia -unclear if due to sepsis versus other causes. Monitor for now.
Acute normocytic anemia -possibly due to acute illness, sepsis. Monitor for now. No evidence of bleeding.
Essential hypertension -stable.
Asthma -unknown severity. Stable.
Hypothyroidism -continue levothyroxine.
Full code
Anticipated Discharge: > 48 hours
Subjective/Interval History
-
Date of Service: May 18, 2024
Patient seen and examined. Complaining of fever this morning.
Objective Data
-
Labs:
Laboratory Results
05/18/24
06:24
WBC 4.9
Hgb 11.1 L
Hct 31.7 L
Plt Count 59 L D
Sodium 133 L
Potassium 3.7
Chloride 105
Carbon Dioxide 22
BUN 14
Creatinine 1.0
Glucose 102 H
Calcium 7.9 L
Total Bilirubin 2.2 H
AST 164 H
ALT 102 H
Alkaline Phosphatase 92
Vital Signs:
Vital Signs
Temp Pulse Resp BP Pulse Ox
100.2 F 89 16 130/61 95
05/18/24 10:44 05/18/24 07:06 05/18/24 07:06 05/18/24 07:06 05/18/24 07:06
I&O
05/17/24 05/18/24 05/19/24
06:59 06:59 06:59
Intake Total 2870 / 2870
Output Total 1500 / 1500
Balance 1370 / 1370
Review of Systems
-
History Source: Patient
All other systems: Reviewed and negative
[2024-05-18] MEDS: MIRALAX 17 GRAMS PO (11:23)
[2024-05-18 12:12] LABS: Direct Bilirubin 0.8 mg/dl (0.0-0.4)
[2024-05-18 12:31] LABS: GGTP 60 U/L (15-73); LDH 666 U/L (120-246)
--- NOTE | 2024-05-18 13:10 | CON.ID ---
Consultation
-
Date/Time Consultation Requested: May 18, 2024 1057
Date/Time Consultation Performed: May 18, 2024 1320
Requesting Provider: Dr. David Irwin
Performing Provider: Dr. Ju Camarillo
Reason for Consultation: Severe sinusitis
Chief Complaint / Past History
Chief Complaint
Persistent fevers and sinus pain
History of Present Illness
History obtained from the patient as well as from his at bedside. He is an 79-year-old male with history of hypertension, recurrent sinusitis, remote history of sinus surgery who started feeling unwell on May 09 when his sinus pain
preceded by multiple sneezing from allergies. He took left over Augmentin the next day . HE saw his PCP on 05/12 who prescribed more Augmentin. 05/13 he had significant nose bleed with clots. 05/14 he developed fever up to 103 and presented to the ED.
T=102.7. plt 90. LFT's mildly elevated. COVID/Flu negative. CXR neg. Sinus CT: moderate bilateral frontal, ethmoid, mild maxillary sinusitis. He wanted to go home and therefore dc'd on moxifloxacin. 05/15 had another episode of epistaxis. He
continues to have fevers. He felt very weak. He came back to ED 05/17. Started on Vanco/Zosyn. Bcx neg to date. Pt now thrombocytopenic. Pt reports no further nose bleed. Sinus pain somewhat better. Continues to have fevers/chills and weakness. Had
trouble urinating at home, Ucx neg. No diarrhea. Per he has sinus infection about twice a year with good response to Augmentin. [place] in [place]. + mosquitoes and insects in campgrounds. He
has not pulled any ticks from himself. He does not use insect repellant. No ill contacts. No recent travel history.
Past History
Additional Past Medical History:
HTN
Hypothyroidism
BPH
Diverticulitis
Asthma
Recurrent sinusitis
Sinus surgery x2 1995
lap swapna
Right inguinal hernia repair
Chronic back pain
Lumbar surgery
Allergy History:
cefaclor [From Ceclor] Allergy (Verified 05/17/24 09:26)
GIB,ARM PAIN; tolerated cephalexin
levofloxacin [From Levaquin] Allergy (Verified 05/17/24 09:26)
'HEART FLUTTERS'
loracarbef [From Lorabid] Allergy (Verified 05/17/24 09:26)
GI upset,ARM PAIN, hand bleeding
tetracycline [Tetracycline] Allergy (Verified 05/17/24 09:26)
swelling; joint pain 1961
levothyroxine sodium [From Synthroid] Adverse Reaction (Verified 05/17/24 09:26)
GI UPSET
meperidine HCl [From Demerol] Adverse Reaction (Verified 05/17/24 09:26)
VOMITING
Medications Reviewed: Yes
Current Antibiotics:
Zosyn
Vancomycin
Social History
Tobacco: Non-Smoker
Alcohol: None
Drug: None
Personal:
Living: With Family
Family History
Family History: Not Pertinent
Review of Systems
Review of Systems
General: Fever, Chills and Change in Appetite
HEENT: Sinus Problems; Negative Pharyngitis
Cardiovascular: Negative Chest Pain or Dyspnea
Respiratory: Negative Dyspnea or Cough
Gasteroenterology: Other (no diarrhea); Negative Nausea or Vomiting
Genital / Urological: Negative Dysuria or Flank Pain
Endocrine: Weakness
Neurological: Negative Dizziness
All systems: All other systems were reviewed and were negative
Vital Signs
Temp Pulse Resp BP Pulse Ox
100.2 F 89 16 130/61 95
05/18/24 10:44 05/18/24 07:06 05/18/24 07:06 05/18/24 07:06 05/18/24 07:06
Selected Entries
05/17/24
15:38
Temp max 103 F H
Physical Exam
Physical Exam
Constitutional: Acutely Ill
Head: Other (mild right frontal sinus tenderness)
Eyes: No Conjunctival Hemorrhage and Sclera Anicteric (mild icterus)
Cardiovascular: Regular Rate and S1/S2
Pulmonary: Clear
Gastrointestinal: Soft, Non Tender, Non Distended and Normal Bowel Sounds
Genito-Urinary: Negative CVA Tenderness
Extremities: Negative Edema
Neurological: AO x 3; Negative Meningeal Signs
Lab / Diagnostic Study Results
05/18/24 06:24
05/18/24 06:24
Abs Immat Gran (auto) 0.1 10^3/uL (0-0.05) H 05/17/24 10:12
Absolute Neuts (auto) 3.1 10^3/uL (1.4-6.5) 05/17/24 10:12
Absolute Lymphs (auto) 0.9 10^3/uL (1.2-3.4) L 05/17/24 10:12
Absolute Monos (auto) 0.9 10^3/uL (0.1-0.6) H 05/17/24 10:12
Absolute Basos (auto) 0.0 10^3/uL (0-0.2) 05/17/24 10:12
Total Counted 100 05/18/24 06:24
Immature Gran % 1.0 % (0-0.5) H 05/17/24 10:12
Neutrophils % 62.4 % (42.2-75.2) 05/17/24 10:12
Lymphocytes % 18.1 % (20.5-51.1) L 05/17/24 10:12
Monocytes % 17.7 % (1.7-9.3) H 05/17/24 10:12
Eosinophils % 0.2 % (0-6) 05/17/24 10:12
Basophils % 0.6 % (0-2) 05/17/24 10:12
Abs Neuts (Manual) 2.7 10^3/uL (1.4-6.5) 05/18/24 06:24
Segmented Neutrophils 56 % (42-75) 05/18/24 06:24
Band Neutrophils 0 % (0-3) 05/18/24 06:24
Lymphocytes (Manual) 35 % (20-51) 05/18/24 06:24
Basophils (Manual) 1 % 05/18/24 06:24
Lactic Acid 1.5 mmol/L (0.7-2.0) 05/18/24 06:24
Ur Squamous Epith Cells 0-2 /LPF (Few) 05/17/24 12:06
Microbiology Results
Micro:
05/17/24 12:06 Blood Culture - Preliminary
Blood/Venous No Growth in 24 hours- Final report to follow
05/17/24 10:12 Blood Culture - Preliminary
Blood/Venous No Growth in 24 hours- Final report to follow
05/17/24 23:54 MRSA Screen - Pending
Nose
05/17/24 CT a/p: Thin linear density within the anterior aspect of the visualized right lower lobe of the lung, compatible with linear scarring or atelectasis. No evidence for urinary tract calculi. Status post cholecystectomy with no evidence for
biliary ductal dilation. Two stable small low-density hepatic lesions, compatible with cysts or hemangiomas. Colonic diverticula with no convincing CT evidence for diverticulitis. No evidence for bowel obstruction or free intraperitoneal air.
05/17/24 CXR: No findings to suggest pneumonia.
05/15/[address]: Moderate bilateral frontal, and ethmoid and mild bilateral maxillary sinusitis despite bilateral medial antrostomy is.
Assessment / Plan
# Suspect tickborne illness [place])
# Fevers
# Acute anemia, thrombocytopenia
# Acute elevated LFT's
# Sinusitis
# Tetracycline allergy - body swelling and joint pain
# Levofloxacin Cefaclor allergy. Tolerated cephalexin and PCNs.
- CT a/p neg
-blood cx neg to date. UA neg.
- ? babesiosis with hemolysis - anemia, elev T. bili and elev LDH
-? Anaplasma vs. Ehrlichia, vs Lyme co-infection with thrombocytopenia, elev LFT's.
- Check blood parasite smear in am.
- Check tickborne panel PCR in am
- Unable to start empiric doxycycline due to tetracycline allergy.
- Unclear if sinusitis is playing a role in fevers. Exam benign. Agree with ENT evaluation, obtain sinus culture if able.
- Follow temps, CBC.
[2024-05-18 15:13] VITALS: BP 151/57
[2024-05-18] MEDS: TORADOL 15 MG IV ×2 (15:42→21:28)
--- NOTE | 2024-05-18 16:21 | CM ---
Patient with Dx sepsis due to acute bilateral sinusitis. Febrile today - temp 105 R at 16:04. Room air. Receiving IV Abx.
Met with patient and Summer;
the patient resides with his in a 1 story house with 4 FLOR and 4 stairs down to living room.
The patient was independent however has been assisted with ADLs for the past 3 days.
He was independent with his RW or PC for ambulation.
DME - RW, [facility]
No prior VN or SNF.
PCP - Tati Werner
Pharmacy - [facility] [address]
Patient may benefit from PT/OT Evals when less medically acute.
Plan TBD.
[2024-05-18] MEDS: LOVENOX 40 MG SC (17:29)
--- NOTE | 2024-05-18 17:46 | W.PN.ENT ---
Today's Communication
-
Consult dictated.
Impression / Plan
-
Pt examined and CT reviewed. He is widely patent in ethmoid and maxillary sinuses as a result of prior surgeries.
There are no air fluid levels but there is soft tissue density in left frontal sinus which could represent either polyps or pus.
Patient has leukocytosis, so symptoms could be viral or bacterial.
Agree with treatment plan so far, but would consider adding Decadron 8mg IV q8 hours for 3 doses.
Subjective Data
-
Pt seen and full consult dictated.
Objective Data
-
Vital Signs
Temp Pulse Resp BP Pulse Ox
100.4 F H 116 16 151/57 96
05/18/24 16:53 05/18/24 15:13 05/18/24 15:13 05/18/24 15:13 05/18/24 15:13
Intake & Output
05/17/24 05/18/24 0724
06:59 06:59 06:59
Intake:
Oral fluids 1620 / 1620
IV fluids (Total) 1000 / 1000
IV piggybacks 250 / 250
Output:
Urine, Voided 1500 / 1500
Lab Results
05/18/24 06:24
05/18/24 06:24
Calcium 7.9 mg/dl (8.4-10.2) L 05/18/24 06:24
Total Bilirubin 2.2 mg/dl (0.2-1.3) H 05/18/24 06:24
Direct Bilirubin 0.8 mg/dl (0.0-0.4) H 05/18/24 06:24
AST 164 U/L (17-59) H 05/18/24 06:24
ALT 102 U/L (0-50) H 05/18/24 06:24
Alkaline Phosphatase 92 U/L (38-126) 05/18/24 06:24
Urine Color Yellow 05/17/24 12:06
Urine Clarity Clear (Clear) 05/17/24 12:06
Urine pH 6.0 (5.0-9.0) 05/17/24 12:06
Ur Specific [place] 1.010 (<1.030) 05/17/24 12:06
Urine Ketones Negative (Negative) 05/17/24 12:06
[2024-05-18 22:57] VITALS: BP 129/63
[2024-05-19] MEDS: ZOSYN 50 IV ×2 (03:26→10:03)
[2024-05-19] MEDS: VANCOCIN 150 IV (05:48)
[2024-05-19] MEDS: NON-FORMULARY ITEM 88 MCG PO (05:49)
[2024-05-19 05:59] LABS: % Basophils 0.6 % (0-2); % Eosinophils 0.4 % (0-6); % Immature Granulocytes 1.2 % (0-0.5); % Lymphocytes 22.2 % (20.5-51.1); % Monocytes 16.3 % (1.7-9.3); % Neutrophils 59.3 % (42.2-75.2); Absolute Immature Granulocytes 0.1 10^3/uL (0-0.05); Absolute Lymphocytes 1.1 10^3/uL (1.2-3.4); Absolute Monocytes 0.8 10^3/uL (0.1-0.6); Absolute Neutrophils 2.9 10^3/uL (1.4-6.5); Hematocrit 26.3 % (39.0-52.0); Hemoglobin 9.3 g/dL (13.0-18.0); Mean Corp Hgb Conc. 35.4 g/dL (33.0-37.0); Mean Corpuscular Hgb 31.4 pg (27.0-31.0); Mean Corpuscular Volume 88.9 fL (80.0-94.0); Mean Platelet Volume 12.1 fL (7.4-10.4); Nucleated Red Blood Cells % 0 % (-); Platelet Count 49 10^3/uL (130-400); Red Blood Cell Count 2.96 10^6/uL (4.70-6.10); White Blood Cell Count 4.9 10^3/uL (4.8-10.8)
[2024-05-19 06:22] LABS: ALT (SGPT) 115 U/L (0-50); AST (SGOT) 167 U/L (17-59); Albumin 2.6 g/dl (3.5-5.0); Alkaline Phosphatase 122 U/L (38-126); Blood Urea Nitrogen 14 mg/dl (9-20); Calcium 7.8 mg/dl (8.4-10.2); Carbon Dioxide 23 mmol/L (22-30); Chloride 102 mmol/L (98-107); Estimated Creatinine Clearance 63 ml/min; Glucose 93 mg/dl (70-99); Potassium 3.6 mmol/L (3.5-5.1); Sodium 131 mmol/L (135-145); Total Bilirubin 2.6 mg/dl (0.2-1.3); Total Protein 5.9 g/dl (6.3-8.2); eGFR > 60.00
[2024-05-19 07:23] VITALS: BP 138/77
--- NOTE | 2024-05-19 08:29 | PHA.VAN.FU ---
Vancomycin Assessment / Plan
- Assessment
Renal Function: Stable
WBC's are: WNL
In the past 24 hrs, patient has been: Febrile
Concomitant Antimicrobials: piperacillin/tazobactam
- Dosing Plan
Continue: Vanc 750mg Q12H
- Monitoring Plan
Peak Level: 05/19 20:30
Trough Level: 05/20 05:30
Monitoring Comments: levels to be drawn after 4th maintenance dose
- Follow Up
Pharmacy will continue to follow.
Vancomycin Follow UP
- -
Patient Age: 79
Patient Sex: Male
Vancomycin Day #: 3
Indication: Pulmonary/Respiratory
Requesting Provider: Dr. Renee / Marquise
Pertinent Antimicrobial Allergies:
cefaclor [From Ceclor] - GIB,ARM PAIN
levofloxacin [From Levaquin] - 'HEART FLUTTERS'
loracarbef [From Lorabid] - GIB,ARM PAIN
tetracycline [Tetracycline] Allergy (Verified 05/17/24 09:26)
GIB,ARM PAIN
Height / Weight:
Height 5 ft 8 in
Actual Weight 82.735 kg
- Vital Signs / Lab Results
Temp Pulse Resp BP Pulse Ox
98.7 F 80 19 138/77 95
05/19/24 07:23 05/19/24 07:23 05/19/24 07:23 05/19/24 07:23 05/19/24 07:23
Lab Results - Hematology
05/17/24 05/18/24 05/19/24
10:12 : 05:45
WBC 5.0 4.9 4.9
Band Neutrophils 0
Lab Results - Chemistry
05/17/24 05/18/24 05/19/24
10:12 06: 05:45
BUN 13 14 14
Creatinine 0.9 1.0 0.9
Estimated Creat Clear 57 63
Albumin 3.2 L 3.0 L 2.6 L
05/17/24 05/17/24 05/17/24
10:12 15:35 16:25
Lactic Acid 2.1 H 1.1 Cancelled
05/17/24 05/18/24 05/18/24
20:25 01:27 06:24
Lactic Acid Cancelled 0.9 1.5
Microbiology Results
05/17/24 12:06 Blood Culture - Preliminary
Blood/Venous No Growth in 24 hours- Final report to follow
05/17/24 10:12 Blood Culture - Preliminary
Blood/Venous No Growth in 24 hours- Final report to follow
[2024-05-19] MEDS: PROTONIX 40 MG PO (08:43)
[2024-05-19] MEDS: PROSCAR 5 MG PO (08:43)
[2024-05-19] MEDS: CARDIZEM CD 180 MG PO (08:44)
[2024-05-19] MEDS: MIRALAX 17 GRAMS PO (08:44)
[2024-05-19] MEDS: NON-FORMULARY ITEM 1 SPRAY NASAL (08:44)
--- NOTE | 2024-05-19 10:43 | W.PN.ID1 ---
Date of Service
Date of Service: May 19, 2024
Today's Communication
Start Babesia tx.
See below.
Assessment / Plan
# [place]
# High fevers persist
# Acute anemia, thrombocytopenia
# Acute elevated LFT's
# Sinusitis- per ENT no air fluid levels but there is soft tissue density in left frontal sinus which could represent either polyps or pus
# Tetracycline allergy - whole body swelling and joint pain
# Levofloxacin Cefaclor allergy. Tolerated cephalexin and PCNs.
- CT a/p neg
-blood cx neg to date. UA neg.
-Blood smear: babesiosis, % pending
Hemolysis - anemia, elev T. bili and elev LDH
- Start Azithromycin 500mg po qd and atovaquone 750mg po bid.
-? Anaplasma vs. Ehrlichia, vs Lyme co-infection with thrombocytopenia, elev LFT's.
- tickborne panel PCR pending
- If fever persists on Babesia treatment, may have to move pt to ICU for doxycycline desensitization. Appreciate Pharmacist Don's help regarding this matter.
- DC Vanco/Zosyn
- Follow temps, CBC.
Chief Complaint
-: Fever
Subjective / Review of Systems
Still c/o chills/fever.
Still with bladder pain, difficulty with urination.
at bedside.
Vital Signs / Physical Exam
Vital Signs
Vital Signs
Temp Pulse Resp BP Pulse Ox
98.7 F 80 19 138/77 95
05/19/24 07:23 05/19/24 07:23 05/19/24 07:23 05/19/24 07:23 05/19/24 07:23
Selected Entries
05/18/24
16:04 05/18/24
22:57
Temp 105 F H 102.9 F H
Physical Exam
Constitutional: Non-toxic
Head: Other
Cardiovascular: Regular Rate
Pulmonary: Clear
Gastrointestinal: Soft, Non Tender and Non Distended
Extremities: Negative Edema
Neurological: AO x 3
Objective Data
Lab Data
Lab Results
05/19/24 05:45
05/19/24 05:45
Estimated Creat Clear 63 ml/min 05/19/24 05:45
Lactic Acid 1.5 mmol/L (0.7-2.0) 05/18/24 06:24
Total Bilirubin 2.6 mg/dl (0.2-1.3) H 05/19/24 05:45
GGT 60 U/L (15-73) 05/18/24 06:24
AST 167 U/L (17-59) H 05/19/24 05:45
ALT 115 U/L (0-50) H 05/19/24 05:45
Alkaline Phosphatase 122 U/L (38-126) 05/19/24 05:45
Most recent labs reviewed.
Micro Results:
05/19/24 05:45 Blood Parasites Smear - Preliminary
Blood/Venous Babesia species
05/17/24 10:12 Blood Culture - Preliminary
Blood/Venous No Growth in 48 hours- Final report to follow
05/17/24 23:54 MRSA Screen - Final
Nose No Methicillin Resistant Staphylococcus aureus isolated.
05/17/24 12:06 Blood Culture - Preliminary
Blood/Venous No Growth in 24 hours- Final report to follow
05/17/24 CT a/p: Thin linear density within the anterior aspect of the visualized right lower lobe of the lung, compatible with linear scarring or atelectasis. No evidence for urinary tract calculi. Status post cholecystectomy with no evidence for
biliary ductal dilation. Two stable small low-density hepatic lesions, compatible with cysts or hemangiomas. Colonic diverticula with no convincing CT evidence for diverticulitis. No evidence for bowel obstruction or free intraperitoneal air.
05/17/24 CXR: No findings to suggest pneumonia.
05/15/[address]: Moderate bilateral frontal, and ethmoid and mild bilateral maxillary sinusitis despite bilateral medial antrostomy is.
Care Review
Plan reviewed with: Physician ( ) and Other (Pharmacist Harriet Ochoa)
[2024-05-19] MEDS: ZITHROMAX 500 MG PO (11:40)
[2024-05-19] MEDS: MEPRON SUSPENSION 750 MG PO ×2 (11:40→21:23)
--- NOTE | 2024-05-19 13:18 | W.PN.HOSP.TC ---
Today's Communication/Plan
-
Monitor vital signs and see plan
Bladder scan
Now with positive PCR, ID following
Continue with azithromycin, atovaquone
Follow fever curve
Spouse updated at bedside
Assessment / Plan
Assessment / Plan
Gen-AAOx3, NAD
HEENT-NC, AT, anicteric, clear oral mm
Neck-supple
CV-reg, no M, +S1/S2
Lungs-clear B/L
Abd-soft, NT, ND
Ext-no edema
Musculoskeletal-no cyanosis, clubbing
Skin-warm and dry
Neuro-grossly non-focal
Psych-calm, cooperative
Sepsis likely 2/2 babesiosis. do not believe fevers are from sinusitis. Follow fever curve. If febrile despite obesity treatment then ID is recommending moving to ICU for doxycycline desensitization. ENT following. CT of the sinuses noted,
moderate bilateral frontal and ethmoid and mild bilateral maxillary sinusitis despite bilateral medial antrostomies. ID following
No evidence of pneumonia. Chest x-ray clear.
Dysuria -with unremarkable urinalysis. Suspect due to prostatic disease, BPH. Did not tolerate tamsulosin reportedly in the past. On Proscar therapy. Will need outpatient follow-up with urology. Bladder scan
Hyponatremia -improving, 133.
Elevated LFTs -likely related to babesiosis. Viral hepatitis panel pending. Check GGT, LDH, direct bilirubin.
Acute thrombocytopenia -likely secondary to babesiosis. Monitor for now.
Acute normocytic anemia -likely secondary to babesiosis. Monitor for now. No evidence of bleeding.
Essential hypertension -stable.
Asthma -unknown severity. Stable.
Hypothyroidism -continue levothyroxine.
Full code
I spent a total of 52 minutes with the patient or on the floor. More than 50% of this time involved counseling and coordination of care.
Anticipated Discharge: > 48 hours
Subjective/Interval History
-
Date of Service: May 19, 2024
has pain
Objective Data
-
Labs:
Laboratory Results
05/19/24
05:45
WBC 4.9
Hgb 9.3 L
Hct 26.3 L
Plt Count 49 L
Sodium 131 L
Potassium 3.6
Chloride 102
Carbon Dioxide 23
BUN 14
Creatinine 0.9
Glucose 93
Calcium 7.8 L
Total Bilirubin 2.6 H
AST 167 H
ALT 115 H
Alkaline Phosphatase 122
Vital Signs:
Vital Signs
Temp Pulse Resp BP Pulse Ox
98.7 F 80 19 138/77 95
05/19/24 07:23 05/19/24 07:23 05/19/24 07:23 05/19/24 07:23 05/19/24 07:23
I&O
05/18/24 05/19/24 05/20/24
06:59 06:59 06:59
Intake Total 2870 / 2870 1440 / 1440
Output Total 1500 / 1500 1650 / 1650
Balance 1370 / 1370 -210 / -210
[2024-05-19 13:43] LABS: Urine Albumin Trace (Neg - Trace); Urine Bilirubin Negative (Negative); Urine Character Clear (Clear); Urine Color Yellow; Urine Glucose Negative (Negative); Urine Ketone Negative (Negative); Urine Leukocyte Negative (Negative); Urine Nitrite Negative (Negative); Urine Occult Blood 2+ (Negative); Urine Urobilinogen 1+ (Neg - 1+)
[2024-05-19 13:54] LABS: Urine Bacteria Few (Negative); Urine Red Blood Cell None Seen /HPF (0-2); Urine White Cell 0-2 /HPF (0-5)
--- NOTE | 2024-05-19 15:19 | CM ---
[facility] letter discussed with patient, patient lives with spouse and plan is to home when stable, patient would benefit from PT/OT evaluations to assist with discharge planning needs.
Plan; Home when stable.
[2024-05-19 15:34] VITALS: BP 107/60
[2024-05-19] MEDS: TYLENOL 650 MG PO ×2 (16:26→22:44)
[2024-05-19] MEDS: LOVENOX 40 MG SC (17:39)
[2024-05-19 18:57] LABS: Hepatitis B Surface Antigen Negative (Negative)
[2024-05-19 19:03] LABS: Hepatitis A IgM Antibody Negative (Negative); Hepatitis B Core Ab, IgM Negative (Negative)
[2024-05-19 19:14] LABS: Hepatitis B Surface Antibody Negative; Hepatitis C Antibody Reactive (Negative)
[2024-05-19] MEDS: TORADOL 15 MG IV (21:31)
[2024-05-19 23:00] VITALS: BP 111/53
[2024-05-20] MEDS: NON-FORMULARY ITEM 88 MCG PO (04:51)
[2024-05-20 07:11] LABS: % Basophils 0.4 % (0-2); % Eosinophils 0.4 % (0-6); % Immature Granulocytes 1.5 % (0-0.5); % Lymphocytes 30.7 % (20.5-51.1); % Monocytes 18.3 % (1.7-9.3); % Neutrophils 48.7 % (42.2-75.2); Absolute Immature Granulocytes 0.1 10^3/uL (0-0.05); Absolute Lymphocytes 1.5 10^3/uL (1.2-3.4); Absolute Monocytes 0.9 10^3/uL (0.1-0.6); Absolute Neutrophils 2.4 10^3/uL (1.4-6.5); Hematocrit 25.7 % (39.0-52.0); Mean Corpuscular Hgb 30.6 pg (27.0-31.0); Mean Corpuscular Volume 87.4 fL (80.0-94.0); Mean Platelet Volume 12.3 fL (7.4-10.4); Nucleated Red Blood Cells % 0 % (-); Platelet Count 62 10^3/uL (130-400); Red Blood Cell Count 2.94 10^6/uL (4.70-6.10); Red Cell Dist. Width 14.5 % (11.5-14.5); White Blood Cell Count 4.8 10^3/uL (4.8-10.8)
[2024-05-20 07:39] VITALS: BP 141/65
[2024-05-20 08:03] LABS: ALT (SGPT) 138 U/L (0-50); AST (SGOT) 170 U/L (17-59); Albumin 2.6 g/dl (3.5-5.0); Alkaline Phosphatase 163 U/L (38-126); Blood Urea Nitrogen 12 mg/dl (9-20); Calcium 7.8 mg/dl (8.4-10.2); Carbon Dioxide 27 mmol/L (22-30); Chloride 104 mmol/L (98-107); Estimated Creatinine Clearance 63 ml/min; Glucose 95 mg/dl (70-99); Potassium 3.8 mmol/L (3.5-5.1); Sodium 133 mmol/L (135-145); Total Bilirubin 1.7 mg/dl (0.2-1.3); eGFR > 60.00
[2024-05-20] MEDS: ZITHROMAX 500 MG PO (08:27)
[2024-05-20] MEDS: MEPRON SUSPENSION 750 MG PO ×2 (08:28→21:26)
[2024-05-20] MEDS: CARDIZEM CD 180 MG PO (08:28)
[2024-05-20] MEDS: MIRALAX 17 GRAMS PO (08:28)
[2024-05-20] MEDS: PROSCAR 5 MG PO (08:28)
[2024-05-20] MEDS: NON-FORMULARY ITEM 2 SPRAY NASAL (08:28)
[2024-05-20] MEDS: PROTONIX 40 MG PO (08:28)
--- NOTE | 2024-05-20 11:13 | W.PN.ID1 ---
Date of Service
Date of Service: May 20, 2024
Today's Communication
Continue Azithromycin and Atovaquone.
See below.
Assessment / Plan
# [place]
# High fevers trending down
# Acute anemia, thrombocytopenia
# Acute elevated LFT's
# Sinusitis- per ENT no air fluid levels but there is soft tissue density in left frontal sinus which could represent either polyps or pus
# Tetracycline allergy - whole body swelling and joint pain
# Levofloxacin Cefaclor allergy. Tolerated cephalexin and PCNs.
- CT a/p neg
-blood cx neg to date. UA neg.
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
- Anemia/Hemolysis - anemia, elev T. bili and elev LDH. T. bili trending down
- thrombocytopenia improving
- Continue Azithromycin 500mg po qd and atovaquone 750mg po bid (d2 of 7 to 10)
- Repeat blood smear tomorrow to follow percentage of Babesia
-Monitor for closely for Anaplasma vs. Ehrlichia, vs Lyme co-infection
- Send out tickborne panel PCR pending
- Doubt Lyme as pt did not respond to outpt Augmentin nor inpt Zosyn.
- If fever persists on Babesia treatment, consider adding rifampin or move pt to ICU for doxycycline desensitization. Appreciate Pharmacist Don's help regarding this matter.
# Acute urinary retention
- Management as per hospitalist.
Chief Complaint
-: Fever
Subjective / Review of Systems
Starting to feel better today. Last fever was last night.
Vital Signs / Physical Exam
Vital Signs
Vital Signs
Temp Pulse Resp BP Pulse Ox
98.6 F 78 19 141/65 94
05/20/24 07:39 05/20/24 07:39 05/20/24 07:39 05/20/24 07:39 05/20/24 07:39
Selected Entries
05/19/24
23:00
Temp 101.5 F H
Physical Exam
Constitutional: No Acute Distress and Comfortable
Cardiovascular: Regular Rate and S1/S2
Pulmonary: Clear
Gastrointestinal: Soft, Non Tender and Non Distended
Genito-Urinary: Negative CVA Tenderness
Extremities: Negative Edema
Neurological: AO x 3
Objective Data
Lab Data
Lab Results
05/20/24 05:29
05/20/24 05:29
Estimated Creat Clear 63 ml/min 05/20/24 05:29
Lactic Acid 1.5 mmol/L (0.7-2.0) 05/18/24 06:24
Total Bilirubin 1.7 mg/dl (0.2-1.3) H 05/20/24 05:29
GGT 60 U/L (15-73) 05/18/24 06:24
AST 170 U/L (17-59) H 05/20/24 05:29
ALT 138 U/L (0-50) H 05/20/24 05:29
Alkaline Phosphatase 163 U/L (38-126) H 05/20/24 05:29
Most recent labs reviewed.
Micro Results:
05/17/24 10:12 Blood Culture - Preliminary
Blood/Venous No Growth in 72 hours- Final report to follow
05/19/24 05:45 Blood Parasites Smear - Final
Blood/Venous Babesia species
05/17/24 12:06 Blood Culture - Preliminary
Blood/Venous No Growth in 48 hours- Final report to follow
05/17/24 23:54 MRSA Screen - Final
Nose No Methicillin Resistant Staphylococcus aureus isolated.
05/17/24 CT a/p: Thin linear density within the anterior aspect of the visualized right lower lobe of the lung, compatible with linear scarring or atelectasis. No evidence for urinary tract calculi. Status post cholecystectomy with no evidence for
biliary ductal dilation. Two stable small low-density hepatic lesions, compatible with cysts or hemangiomas. Colonic diverticula with no convincing CT evidence for diverticulitis. No evidence for bowel obstruction or free intraperitoneal air.
05/17/24 CXR: No findings to suggest pneumonia.
05/15/[address]: Moderate bilateral frontal, and ethmoid and mild bilateral maxillary sinusitis despite bilateral medial antrostomy is.
[2024-05-20] MEDS: CARAFATE 1 GRAM PO ×3 (12:26→21:26)
--- NOTE | 2024-05-20 12:30 | W.PN.HOSP.TC ---
Today's Communication/Plan
-
Monitor vital signs see plan
Follow fever curve
f/i lyme,anaplasma
cw abx
Hep C antibody reactive
Assessment / Plan
Assessment / Plan
Gen-AAOx3, NAD
HEENT-NC, AT, anicteric, clear oral mm
Neck-supple
CV-reg, no M, +S1/S2
Lungs-clear B/L
Abd-soft, NT, ND
Ext-no edema
Musculoskeletal-no cyanosis, clubbing
Skin-warm and dry
Neuro-grossly non-focal
Psych-calm, cooperative
Sepsis likely 2/2 babesiosis. do not believe fevers are from sinusitis. Follow fever curve. If febrile despite obesity treatment then ID is recommending moving to ICU for doxycycline desensitization. ENT following. CT of the sinuses noted,
moderate bilateral frontal and ethmoid and mild bilateral maxillary sinusitis despite bilateral medial antrostomies. ID following
No evidence of pneumonia. Chest x-ray clear.
Follow-up for anaplasma,ehrlichia,lyme
Hyponatremia
monitor
Dysuria -with unremarkable urinalysis. Suspect due to prostatic disease, BPH. Did not tolerate tamsulosin reportedly in the past. On Proscar therapy. Will need outpatient follow-up with urology. Bladder scan
Hyponatremia -improving, 133.
Elevated LFTs -likely related to babesiosis. hep C ab reactive
Acute thrombocytopenia -likely secondary to babesiosis. Monitor for now.
Acute normocytic anemia -likely secondary to babesiosis. Monitor for now. No evidence of bleeding.
Essential hypertension -stable.
Asthma -unknown severity. Stable.
Hypothyroidism -continue levothyroxine.
Full code
I spent a total of 51 minutes with the patient or on the floor. More than 50% of this time involved counseling and coordination of care.
Anticipated Discharge: > 48 hours
Subjective/Interval History
-
Date of Service: May 20, 2024
denies pain
Objective Data
-
Labs:
Laboratory Results
05/20/24
05:29
WBC 4.8
Hgb 9.0 L
Hct 25.7 L
Plt Count 62 L D
Sodium 133 L
Potassium 3.8
Chloride 104
Carbon Dioxide 27
BUN 12
Creatinine 0.9
Glucose 95
Calcium 7.8 L
Total Bilirubin 1.7 H
AST 170 H
ALT 138 H
Alkaline Phosphatase 163 H
Vital Signs:
Vital Signs
Temp Pulse Resp BP Pulse Ox
98.6 F 78 19 141/65 94
05/20/24 07:39 05/20/24 07:39 05/20/24 07:39 05/20/24 07:39 05/20/24 07:39
I&O
05/19/24 05/20/24 05/21/24
06:59 06:59 06:59
Intake Total 1440 / 1440 2660 / 2660
Output Total 1650 / 1650 4230 / 4230
Balance -210 / -210 -1570 / -1570
--- NOTE | 2024-05-20 14:01 | CM ---
Patient switched to inpatient, spouse and patient are happy about inpatient status, patient, may benefit from PT/OT to assist with discharge planning.
Plan; Home with spouse when stable.
[2024-05-20 15:09] VITALS: BP 108/59; PULSE 74; O2SAT 94
[2024-05-20 15:10] VITALS: BP 108/59; PULSE 74; O2SAT 94
[2024-05-20 15:25] VITALS: BP 108/59
[2024-05-20] MEDS: LOVENOX 40 MG SC (16:31)
[2024-05-20] MEDS: TYLENOL 650 MG PO (21:26)
[2024-05-20 22:46] VITALS: BP 113/63
[2024-05-21] MEDS: NON-FORMULARY ITEM 88 MCG PO (05:47)
[2024-05-21 07:23] VITALS: BP 132/63
[2024-05-21 07:35] LABS: % Basophils 0.8 % (0-2); % Eosinophils 1.1 % (0-6); % Immature Granulocytes 1.3 % (0-0.5); % Lymphocytes 40.1 % (20.5-51.1); % Monocytes 16.7 % (1.7-9.3); Absolute Immature Granulocytes 0.1 10^3/uL (0-0.05); Absolute Lymphocytes 1.5 10^3/uL (1.2-3.4); Absolute Monocytes 0.6 10^3/uL (0.1-0.6); Absolute Neutrophils 1.5 10^3/uL (1.4-6.5); Hematocrit 26.4 % (39.0-52.0); Hemoglobin 9.2 g/dL (13.0-18.0); Mean Corp Hgb Conc. 34.8 g/dL (33.0-37.0); Mean Corpuscular Hgb 30.4 pg (27.0-31.0); Mean Corpuscular Volume 87.1 fL (80.0-94.0); Mean Platelet Volume 11.3 fL (7.4-10.4); Nucleated Red Blood Cells % 0 % (-); Platelet Count 109 10^3/uL (130-400); Red Blood Cell Count 3.03 10^6/uL (4.70-6.10); Red Cell Dist. Width 14.6 % (11.5-14.5); White Blood Cell Count 3.7 10^3/uL (4.8-10.8)
[2024-05-21] MEDS: CARAFATE 1 GRAM PO ×4 (07:35→21:33)
[2024-05-21 07:53] LABS: ALT (SGPT) 158 U/L (0-50); AST (SGOT) 179 U/L (17-59); Albumin 2.7 g/dl (3.5-5.0); Alkaline Phosphatase 181 U/L (38-126); Blood Urea Nitrogen 12 mg/dl (9-20); Calcium 7.8 mg/dl (8.4-10.2); Carbon Dioxide 26 mmol/L (22-30); Chloride 106 mmol/L (98-107); Estimated Creatinine Clearance 71 ml/min; Glucose 89 mg/dl (70-99); Potassium 3.7 mmol/L (3.5-5.1); Sodium 135 mmol/L (135-145); Total Bilirubin 1.1 mg/dl (0.2-1.3); Total Protein 6.3 g/dl (6.3-8.2); eGFR > 60.00
[2024-05-21] MEDS: MIRALAX 17 GRAMS PO (08:14)
[2024-05-21] MEDS: PROTONIX 40 MG PO (08:15)
[2024-05-21] MEDS: PROSCAR 5 MG PO (08:15)
[2024-05-21] MEDS: NON-FORMULARY ITEM 2 SPRAY NASAL (08:15)
[2024-05-21] MEDS: MEPRON SUSPENSION 750 MG PO ×2 (08:15→20:19)
[2024-05-21] MEDS: CARDIZEM CD 180 MG PO (08:15)
[2024-05-21] MEDS: ZITHROMAX 500 MG PO (08:15)
--- NOTE | 2024-05-21 11:36 | W.PN.HOSP.TC ---
Today's Communication/Plan
-
monitor vitals
see plan
hep C PCR
cw abx
monitor LFT's
follow fever curve
Assessment / Plan
Assessment / Plan
Gen-AAOx3, NAD
HEENT-NC, AT, anicteric, clear oral mm
Neck-supple
CV-reg, no M, +S1/S2
Lungs-clear B/L
Abd-soft, NT, ND
Ext-no edema
Musculoskeletal-no cyanosis, clubbing
Skin-warm and dry
Neuro-grossly non-focal
Psych-calm, cooperative
Sepsis likely 2/2 babesiosis. do not believe fevers are from sinusitis. Follow fever curve. If febrile despite obesity treatment then ID is recommending moving to ICU for doxycycline desensitization. ENT following. CT of the sinuses noted,
moderate bilateral frontal and ethmoid and mild bilateral maxillary sinusitis despite bilateral medial antrostomies. ID following
No evidence of pneumonia. Chest x-ray clear.
Follow-up for anaplasma,ehrlichia,lyme
Hyponatremia
monitor
Dysuria -with unremarkable urinalysis. Suspect due to prostatic disease, BPH. Did not tolerate tamsulosin reportedly in the past. On Proscar therapy. Will need outpatient follow-up with urology. Bladder scan
Hyponatremia -improving, 133.
Elevated LFTs -likely related to babesiosis. hep C ab reactive, spoke with patient, no known exposure. Ordered hep C PCR; patient will also follow-up with PCP outpatient
Acute thrombocytopenia -likely secondary to babesiosis. Monitor for now.
Acute normocytic anemia -likely secondary to babesiosis. Monitor for now. No evidence of bleeding.
Essential hypertension -stable.
Asthma -unknown severity. Stable.
Hypothyroidism -continue levothyroxine.
Full code
I spent a total of 52 minutes with the patient or on the floor. More than 50% of this time involved counseling and coordination of care.
Anticipated Discharge: 24 - 48 hours
Subjective/Interval History
-
Date of Service: May 21, 2024
denies pain
Objective Data
-
Labs:
Laboratory Results
05/21/24
06:23
WBC 3.7 L
Hgb 9.2 L
Hct 26.4 L
Plt Count 109 L D
Sodium 135
Potassium 3.7
Chloride 106
Carbon Dioxide 26
BUN 12
Creatinine 0.8
Glucose 89
Calcium 7.8 L
Total Bilirubin 1.1
AST 179 H
ALT 158 H
Alkaline Phosphatase 181 H
Vital Signs:
Vital Signs
Temp Pulse Resp BP Pulse Ox
97.9 F 72 21 132/63 97
05/21/24 07:23 05/21/24 07:23 05/21/24 07:23 05/21/24 07:23 05/21/24 07:23
I&O
05/20/24 05/21/24 05/22/24
06:59 06:59 06:59
Intake Total 2660 / 2660 2280 / 2280
Output Total 4230 / 4230 2550 / 2550
Balance -1570 / -1570 -270 / -270
[2024-05-21] MEDS: AFRIN NASAL SPRAY 2 SPRAYS NASAL (15:04)
--- NOTE | 2024-05-21 15:15 | CM ---
Chart reviewed and plan is to home when stable.
Plan; Home no needs.
[2024-05-21 15:38] VITALS: BP 127/57
--- NOTE | 2024-05-21 16:58 | W.PN.ID1 ---
Date of Service
Date of Service: May 21, 2024
Today's Communication
- Continue Azithromycin 500mg po qd and atovaquone 750mg po bid (d3 of 7 to 10)
Assessment / Plan
# [place]
# High fevers trending down
# Acute anemia, thrombocytopenia
# Acute elevated LFT's
# Sinusitis- per ENT no air fluid levels but there is soft tissue density in left frontal sinus which could represent either polyps or pus
# Tetracycline allergy - whole body swelling and joint pain
# Levofloxacin Cefaclor allergy. Tolerated cephalexin and PCNs.
-Blood smear: babesiosis, 1.15 % -> 0.25%
- Anemia/Hemolysis - anemia, elev T. bili and elev LDH. T. bili trending down
- thrombocytopenia improving
- Continue Azithromycin 500mg po qd and atovaquone 750mg po bid (d3 of 7 to 10)
-Monitor for closely for Anaplasma vs. Ehrlichia, vs Lyme co-infection
- Send out tickborne panel PCR pending
- Doubt Lyme as pt did not respond to outpt Augmentin nor inpt Zosyn.
- If fever persists on Babesia treatment, consider adding rifampin or move pt to ICU for doxycycline desensitization. Appreciate Pharmacist Don's help regarding this matter.
# Acute urinary retention
- Management as per hospitalist.
Chief Complaint
-: Fever
Subjective / Review of Systems
fever resolved so far today
bp stable
mild leukopenia today
plt notably improved
cr stable
babesia smear percentage improved
Vital Signs / Physical Exam
Vital Signs
Vital Signs
Temp Pulse Resp BP Pulse Ox
98.3 F 67 18 127/57 95
05/21/24 15:38 05/21/24 15:38 05/21/24 15:38 05/21/24 15:38 05/21/24 15:38
Physical Exam
Constitutional: No Acute Distress
Cardiovascular: Regular Rate and S1/S2; Negative Murmur or Rub
Pulmonary: Clear and Symmetric; Negative Wheezes or Rales
Gastrointestinal: Soft, Non Tender, Non Distended and Normal Bowel Sounds
Skin: Warm and Dry; Negative Rash or Jaundice
Objective Data
Lab Data
Lab Results
05/21/24 06:23
05/21/24 06:23
Estimated Creat Clear 71 ml/min 05/21/24 06:23
Lactic Acid 1.5 mmol/L (0.7-2.0) 05/18/24 06:24
Total Bilirubin 1.1 mg/dl (0.2-1.3) 05/21/24 06:23
GGT 60 U/L (15-73) 05/18/24 06:24
AST 179 U/L (17-59) H 05/21/24 06:23
ALT 158 U/L (0-50) H 05/21/24 06:23
Alkaline Phosphatase 181 U/L (38-126) H 05/21/24 06:23
Most recent labs reviewed.
Micro Results:
05/17/24 12:06 Blood Culture - Preliminary
Blood/Venous No Growth in 4 days- Final report to follow
05/17/24 10:12 Blood Culture - Preliminary
Blood/Venous No Growth in 4 days- Final report to follow
05/21/24 06:23 Blood Parasites Smear - Final
Blood/Venous Babesia species
05/19/24 05:45 Blood Parasites Smear - Final
Blood/Venous Babesia species
05/17/24 23:54 MRSA Screen - Final
Nose No Methicillin Resistant Staphylococcus aureus isolated.
05/17/24 CT a/p: Thin linear density within the anterior aspect of the visualized right lower lobe of the lung, compatible with linear scarring or atelectasis. No evidence for urinary tract calculi. Status post cholecystectomy with no evidence for
biliary ductal dilation. Two stable small low-density hepatic lesions, compatible with cysts or hemangiomas. Colonic diverticula with no convincing CT evidence for diverticulitis. No evidence for bowel obstruction or free intraperitoneal air.
05/17/24 CXR: No findings to suggest pneumonia.
05/15/[address]: Moderate bilateral frontal, and ethmoid and mild bilateral maxillary sinusitis despite bilateral medial antrostomy is.
[2024-05-21] MEDS: LOVENOX 40 MG SC (17:19)
[2024-05-21] MEDS: AFRIN NASAL SPRAY 1 SPRAYS NASAL (20:18)
[2024-05-21 23:00] VITALS: BP 114/42
[2024-05-22] MEDS: NON-FORMULARY ITEM 88 MCG PO (06:10)
[2024-05-22 07:00] VITALS: BP 117/60
[2024-05-22 07:37] LABS: % Basophils 1.1 % (0-2); % Eosinophils 1.3 % (0-6); % Immature Granulocytes 1.6 % (0-0.5); % Lymphocytes 45.3 % (20.5-51.1); % Monocytes 8.7 % (1.7-9.3); Absolute Basophils 0.1 10^3/uL (0-0.2); Absolute Eosinophils 0.1 10^3/uL (0-0.7); Absolute Immature Granulocytes 0.1 10^3/uL (0-0.05); Absolute Monocytes 0.4 10^3/uL (0.1-0.6); Absolute Neutrophils 1.9 10^3/uL (1.4-6.5); Hemoglobin 10.3 g/dL (13.0-18.0); Mean Corp Hgb Conc. 33.2 g/dL (33.0-37.0); Mean Corpuscular Hgb 30.5 pg (27.0-31.0); Mean Corpuscular Volume 91.7 fL (80.0-94.0); Mean Platelet Volume 11.1 fL (7.4-10.4); Nucleated Red Blood Cells % 0 % (-); Platelet Count 157 10^3/uL (130-400); Red Blood Cell Count 3.38 10^6/uL (4.70-6.10); Red Cell Dist. Width 14.8 % (11.5-14.5); White Blood Cell Count 4.5 10^3/uL (4.8-10.8)
[2024-05-22 08:01] LABS: ALT (SGPT) 182 U/L (0-50); AST (SGOT) 190 U/L (17-59); Albumin 3.1 g/dl (3.5-5.0); Alkaline Phosphatase 183 U/L (38-126); Blood Urea Nitrogen 12 mg/dl (9-20); Calcium 8.2 mg/dl (8.4-10.2); Carbon Dioxide 28 mmol/L (22-30); Chloride 105 mmol/L (98-107); Estimated Creatinine Clearance 71 ml/min; Glucose 89 mg/dl (70-99); Potassium 4.3 mmol/L (3.5-5.1); Sodium 137 mmol/L (135-145); Total Bilirubin 0.9 mg/dl (0.2-1.3); eGFR > 60.00
[2024-05-22] MEDS: CARAFATE PO (09:00)
[2024-05-22] MEDS: NON-FORMULARY ITEM 2 SPRAY NASAL (10:26)
[2024-05-22] MEDS: AFRIN NASAL SPRAY 1 SPRAYS NASAL ×2 (10:27→20:30)
[2024-05-22] MEDS: MIRALAX 17 GRAMS PO (10:31)
[2024-05-22] MEDS: MEPRON SUSPENSION 750 MG PO ×2 (10:33→20:32)
[2024-05-22] MEDS: PROTONIX 40 MG PO (10:34)
[2024-05-22] MEDS: CARDIZEM CD 180 MG PO (10:34)
[2024-05-22] MEDS: PROSCAR 5 MG PO (10:34)
[2024-05-22] MEDS: ZITHROMAX 500 MG PO (10:35)
[2024-05-22] MEDS: CARAFATE 1 GRAM PO ×3 (10:35→20:32)
--- NOTE | 2024-05-22 11:32 | W.PN.HOSP.TC ---
Today's Communication/Plan
-
monitor vitals
see plan
cw abx
follow fever curve
dc likely tomorrow
hep C pcr pending
Monitor for urinary retention
Assessment / Plan
Assessment / Plan
Gen-AAOx3, NAD
HEENT-NC, AT, anicteric, clear oral mm
Neck-supple
CV-reg, no M, +S1/S2
Lungs-clear B/L
Abd-soft, NT, ND
Ext-no edema
Musculoskeletal-no cyanosis, clubbing
Skin-warm and dry
Neuro-grossly non-focal
Psych-calm, cooperative
Sepsis likely 2/2 babesiosis. do not believe fevers are from sinusitis. Follow fever curve. If febrile despite obesity treatment then ID is recommending moving to ICU for doxycycline desensitization. ENT following. CT of the sinuses noted,
moderate bilateral frontal and ethmoid and mild bilateral maxillary sinusitis despite bilateral medial antrostomies. ID following
No evidence of pneumonia. Chest x-ray clear.
Follow-up for anaplasma,ehrlichia,lyme coinfection
cw azithro and atovaquone
Hyponatremia
monitor
Dysuria -with unremarkable urinalysis. now improving. Suspect due to prostatic disease, BPH. Did not tolerate tamsulosin reportedly in the past. On Proscar therapy. Will need outpatient follow-up with urology. Bladder scan
Hyponatremia -resolved
Elevated LFTs -likely related to babesiosis. hep C ab reactive, spoke with patient, no known exposure. Ordered hep C PCR,pending; patient will also follow-up with PCP outpatient
Acute thrombocytopenia -likely secondary to babesiosis. Monitor for now.
Acute normocytic anemia -likely secondary to babesiosis. Monitor for now. No evidence of bleeding.
Essential hypertension -stable.
Asthma -unknown severity. Stable.
Hypothyroidism -continue levothyroxine.
Full code
Anticipated Discharge: Within 24 hours
Subjective/Interval History
-
Date of Service: May 22, 2024
denies pain
Objective Data
-
Labs:
Laboratory Results
05/22/24
06:20
WBC 4.5 L
Hgb 10.3 L
Hct 31.0 L
Plt Count 157 D
Sodium 137
Potassium 4.3
Chloride 105
Carbon Dioxide 28
BUN 12
Creatinine 0.8
Glucose 89
Calcium 8.2 L
Total Bilirubin 0.9
AST 190 H
ALT 182 H
Alkaline Phosphatase 183 H
Vital Signs:
Vital Signs
Temp Pulse Resp BP Pulse Ox
98.3 F 70 18 117/60 95
05/22/24 07:00 05/22/24 07:00 05/22/24 07:00 05/22/24 07:00 05/22/24 07:00
I&O
05/21/24 05/22/24 05/23/24
06:59 06:59 06:59
Intake Total 2280 / 2280 960 / 960
Output Total 2550 / 2550 450 / 450
Balance -270 / -270 510 / 510
--- NOTE | 2024-05-22 12:39 | W.PN.ID1 ---
Date of Service
Date of Service: May 22, 2024
Today's Communication
Continue antibiotics.
Assessment / Plan
# [place]
# High fevers trending down
# Acute anemia, thrombocytopenia
# Acute elevated LFT's
# Sinusitis- per ENT no air fluid levels but there is soft tissue density in left frontal sinus which could represent either polyps or pus
# Tetracycline allergy - whole body swelling and joint pain
# Levofloxacin Cefaclor allergy. Tolerated cephalexin and PCNs.
-Blood smear: babesiosis, 1.15 % -> 0.25% -> 0%
- Anemia/Hemolysis - anemia, elev T. bili and elev LDH. T. bili trending down
- thrombocytopenia improving
--> Continue Azithromycin 500mg po qd and atovaquone 750mg po bid (d#4 of 10)
No objection to D/C from ID standpoint
- Await send-out tickborne panel PCR: pending. Will F/U with patient
# Acute urinary retention
- Management as per hospitalist.
Chief Complaint
-: Fever
Subjective / Review of Systems
Review of Systems: No Fever and No Chills
Vital Signs / Physical Exam
Vital Signs
Vital Signs
Temp Pulse Resp BP Pulse Ox
98.3 F 70 18 117/60 95
05/22/24 07:00 05/22/24 07:00 05/22/24 07:00 05/22/24 07:00 05/22/24 07:00
Physical Exam
Constitutional: No Acute Distress, Comfortable, Chronically Ill and Non-toxic
Eyes: Sclera Anicteric
Cardiovascular: Regular Rate
Pulmonary: Non Labored
Gastrointestinal: Non Distended
Extremities: Negative Erythema
Skin: Warm and Dry; Negative Rash or Jaundice
Neurological: Awake and Alert
Psychological: Calm
Objective Data
Lab Data
Lab Results
05/22/24 06:20
05/22/24 06:20
Estimated Creat Clear 71 ml/min 05/22/24 06:20
Lactic Acid 1.5 mmol/L (0.7-2.0) 05/18/24 06:24
Total Bilirubin 0.9 mg/dl (0.2-1.3) 05/22/24 06:20
GGT 60 U/L (15-73) 05/18/24 06:24
AST 190 U/L (17-59) H 05/22/24 06:20
ALT 182 U/L (0-50) H 05/22/24 06:20
Alkaline Phosphatase 183 U/L (38-126) H 05/22/24 06:20
Most recent labs reviewed.
Micro Results:
05/17/24 12:06 Blood Culture - Final
Blood/Venous No Growth - Final Report
05/17/24 10:12 Blood Culture - Final
Blood/Venous No Growth - Final Report
05/22/24 06:20 Blood Parasites Smear - Preliminary
Blood/Venous No blood parasites seen.
05/21/24 06:23 Blood Parasites Smear - Final
Blood/Venous Babesia species
05/19/24 05:45 Blood Parasites Smear - Final
Blood/Venous Babesia species
05/17/24 23:54 MRSA Screen - Final
Nose No Methicillin Resistant Staphylococcus aureus isolated.
05/17/24 CT a/p: Thin linear density within the anterior aspect of the visualized right lower lobe of the lung, compatible with linear scarring or atelectasis. No evidence for urinary tract calculi. Status post cholecystectomy with no evidence for
biliary ductal dilation. Two stable small low-density hepatic lesions, compatible with cysts or hemangiomas. Colonic diverticula with no convincing CT evidence for diverticulitis. No evidence for bowel obstruction or free intraperitoneal air.
05/17/24 CXR: No findings to suggest pneumonia.
05/15/[address]: Moderate bilateral frontal, and ethmoid and mild bilateral maxillary sinusitis despite bilateral medial antrostomy is.
Care Review
Plan reviewed with: Physician (Hospitalist)
[2024-05-22] MEDS: ARISTOCORT/TRIAMCINOLONE 0.1% CREAM 1 APPLIC TOPICAL ×2 (14:50→20:31)
[2024-05-22 15:00] VITALS: BP 143/67
[2024-05-22] MEDS: LOVENOX 40 MG SC (16:59)
[2024-05-22 23:23] VITALS: BP 133/74
[2024-05-23 02:50] LABS: HCV Quant by NAAT IU/mL Not Detected; HCV Quant by NAAT Interp Not Detected (Not Detected); HCV Quant by NAAT Log IU/mL Not Detected log IU/mL
[2024-05-23] MEDS: CARAFATE 1 GRAM PO ×2 (06:13→12:17)
[2024-05-23] MEDS: NON-FORMULARY ITEM 88 MCG PO (06:13)
[2024-05-23 07:00] VITALS: BP 126/66
[2024-05-23] MEDS: AFRIN NASAL SPRAY 1 SPRAYS NASAL (08:32)
[2024-05-23] MEDS: ARISTOCORT/TRIAMCINOLONE 0.1% CREAM 1 APPLIC TOPICAL (08:32)
[2024-05-23 08:35] LABS: % Eosinophils 2.4 % (0-6); % Immature Granulocytes 2.4 % (0-0.5); % Lymphocytes 42.7 % (20.5-51.1); % Monocytes 6.3 % (1.7-9.3); % Neutrophils 45.2 % (42.2-75.2); Absolute Basophils 0.1 10^3/uL (0-0.2); Absolute Eosinophils 0.1 10^3/uL (0-0.7); Absolute Immature Granulocytes 0.1 10^3/uL (0-0.05); Absolute Lymphocytes 2.1 10^3/uL (1.2-3.4); Absolute Monocytes 0.3 10^3/uL (0.1-0.6); Absolute Neutrophils 2.2 10^3/uL (1.4-6.5); Hematocrit 32.7 % (39.0-52.0); Hemoglobin 10.6 g/dL (13.0-18.0); Mean Corp Hgb Conc. 32.4 g/dL (33.0-37.0); Mean Corpuscular Hgb 30.2 pg (27.0-31.0); Mean Corpuscular Volume 93.2 fL (80.0-94.0); Mean Platelet Volume 10.3 fL (7.4-10.4); Nucleated Red Blood Cells % 0.4 % (-); Platelet Count 233 10^3/uL (130-400); Red Blood Cell Count 3.51 10^6/uL (4.70-6.10); White Blood Cell Count 4.9 10^3/uL (4.8-10.8)
[2024-05-23] MEDS: CARDIZEM CD 180 MG PO (08:43)
[2024-05-23] MEDS: PROTONIX 40 MG PO (08:44)
[2024-05-23] MEDS: PROSCAR 5 MG PO (08:44)
[2024-05-23] MEDS: MIRALAX PO (08:44)
[2024-05-23] MEDS: MEPRON SUSPENSION 750 MG PO (08:44)
[2024-05-23] MEDS: ZITHROMAX 500 MG PO (08:46)
[2024-05-23 08:47] LABS: ALT (SGPT) 176 U/L (0-50); AST (SGOT) 154 U/L (17-59); Albumin 3.4 g/dl (3.5-5.0); Alkaline Phosphatase 180 U/L (38-126); Blood Urea Nitrogen 12 mg/dl (9-20); Calcium 8.8 mg/dl (8.4-10.2); Carbon Dioxide 25 mmol/L (22-30); Chloride 104 mmol/L (98-107); Estimated Creatinine Clearance 71 ml/min; Glucose 111 mg/dl (70-99); Potassium 4.2 mmol/L (3.5-5.1); Sodium 136 mmol/L (135-145); Total Bilirubin 0.9 mg/dl (0.2-1.3); Total Protein 7.4 g/dl (6.3-8.2); eGFR > 60.00
[2024-05-23] MEDS: NON-FORMULARY ITEM 2 SPRAY NASAL (08:47)
[2024-05-23] MEDS: MIRALAX 17 GRAMS PO (08:56)
--- NOTE | 2024-05-23 11:50 | W.PN.ID1 ---
Date of Service
Date of Service: May 23, 2024
Today's Communication
--> Continue Azithromycin 500mg po qd and atovaquone 750mg po bid (d#)
No objection to D/C from ID standpoint
- Await send-out tickborne panel PCR: pending. Dr Candido james F/U with patient
- Hep C PCR negative
Assessment / Plan
# [place]
# High fevers trending down
# Acute anemia, thrombocytopenia
# Acute elevated LFT's
# Sinusitis- per ENT no air fluid levels but there is soft tissue density in left frontal sinus which could represent either polyps or pus
# Tetracycline allergy - whole body swelling and joint pain
# Levofloxacin Cefaclor allergy. Tolerated cephalexin and PCNs.
-Blood smear: babesiosis, 1.15 % -> 0.25% -> 0%
- Anemia/Hemolysis - anemia, elev T. bili and elev LDH. T. bili trending down
- thrombocytopenia improving
--> Continue Azithromycin 500mg po qd and atovaquone 750mg po bid (d#)
No objection to D/C from ID standpoint
- Await send-out tickborne panel PCR: pending. Dr Candido james F/U with patient
- Hep C PCR negative
Chief Complaint
-: Fever
Subjective / Review of Systems
No further fevers
BP stable
without leukocytosis
cr stable
hep C pcr negative
Vital Signs / Physical Exam
Vital Signs
Vital Signs
Temp Pulse Resp BP Pulse Ox
98.4 F 78 18 126/66 97
05/23/24 07:00 05/23/24 07:00 05/23/24 07:00 05/23/24 07:00 05/23/24 07:00
Physical Exam
Constitutional: No Acute Distress
Cardiovascular: Regular Rate and S1/S2; Negative Murmur or Rub
Pulmonary: Clear and Symmetric; Negative Wheezes or Rales
Gastrointestinal: Soft, Non Tender, Non Distended and Normal Bowel Sounds
Skin: Warm and Dry; Negative Rash or Jaundice
Objective Data
Lab Data
Lab Results
05/23/24 07:55
05/23/24 07:55
Estimated Creat Clear 71 ml/min 05/23/24 07:55
Lactic Acid 1.5 mmol/L (0.7-2.0) 05/18/24 06:24
Total Bilirubin 0.9 mg/dl (0.2-1.3) 05/23/24 07:55
GGT 60 U/L (15-73) 05/18/24 06:24
AST 154 U/L (17-59) H 05/23/24 07:55
ALT 176 U/L (0-50) H 05/23/24 07:55
Alkaline Phosphatase 180 U/L (38-126) H 05/23/24 07:55
Most recent labs reviewed.
Micro Results:
05/22/24 06:20 Blood Parasites Smear - Final
Blood/Venous
05/17/24 12:06 Blood Culture - Final
Blood/Venous No Growth - Final Report
05/17/24 10:12 Blood Culture - Final
Blood/Venous No Growth - Final Report
05/21/24 06:23 Blood Parasites Smear - Final
Blood/Venous Babesia species
05/19/24 05:45 Blood Parasites Smear - Final
Blood/Venous Babesia species
05/17/24 23:54 MRSA Screen - Final
Nose No Methicillin Resistant Staphylococcus aureus isolated.
05/17/24 CT a/p: Thin linear density within the anterior aspect of the visualized right lower lobe of the lung, compatible with linear scarring or atelectasis. No evidence for urinary tract calculi. Status post cholecystectomy with no evidence for
biliary ductal dilation. Two stable small low-density hepatic lesions, compatible with cysts or hemangiomas. Colonic diverticula with no convincing CT evidence for diverticulitis. No evidence for bowel obstruction or free intraperitoneal air.
05/17/24 CXR: No findings to suggest pneumonia.
05/15/[address]: Moderate bilateral frontal, and ethmoid and mild bilateral maxillary sinusitis despite bilateral medial antrostomy is.
--- NOTE | 2024-05-23 12:02 | W.PN.HOSP.TC ---
Today's Communication/Plan
-
Monitor vital signs see plan
discharge today
updated at bedside
cw abx
Time of discharge 38-minutes
Assessment / Plan
Assessment / Plan
Gen-AAOx3, NAD
HEENT-NC, AT, anicteric, clear oral mm
Neck-supple
CV-reg, no M, +S1/S2
Lungs-clear B/L
Abd-soft, NT, ND
Ext-no edema
Musculoskeletal-no cyanosis, clubbing
Skin-warm and dry
Neuro-grossly non-focal
Psych-calm, cooperative
Sepsis likely 2/2 babesiosis. do not believe fevers are from sinusitis. Follow fever curve. If febrile despite obesity treatment then ID is recommending moving to ICU for doxycycline desensitization. ENT following. CT of the sinuses noted,
moderate bilateral frontal and ethmoid and mild bilateral maxillary sinusitis despite bilateral medial antrostomies. ID following
No evidence of pneumonia. Chest x-ray clear.
Follow-up for anaplasma,ehrlichia,lyme coinfection
cw azithro and atovaquone for total of 10 days.
Repeat parasite test without Babesia
Hyponatremia
monitor, resolved
Dysuria -with unremarkable urinalysis. now improving. Suspect due to prostatic disease, BPH. Did not tolerate tamsulosin reportedly in the past. On Proscar therapy. Will need outpatient follow-up with urology. Bladder scan
Hyponatremia -resolved
Elevated LFTs -likely related to babesiosis. hep C ab reactive, spoke with patient, no known exposure. Ordered hep C PCR, negative. Could likely be false positive; patient will also follow-up with PCP outpatient
Acute thrombocytopenia -likely secondary to babesiosis. Monitor for now.
Acute normocytic anemia -likely secondary to babesiosis. Monitor for now. No evidence of bleeding.
Essential hypertension -stable.
Asthma -unknown severity. Stable.
Hypothyroidism -continue levothyroxine.
Full code
Anticipated Discharge: Today
Subjective/Interval History
-
Date of Service: May 23, 2024
Denies pain
Objective Data
-
Labs:
Laboratory Results
05/23/24
07:55
WBC 4.9
Hgb 10.6 L
Hct 32.7 L
Plt Count 233 D
Sodium 136
Potassium 4.2
Chloride 104
Carbon Dioxide 25
BUN 12
Creatinine 0.8
Glucose 111 H
Calcium 8.8
Total Bilirubin 0.9
AST 154 H
ALT 176 H
Alkaline Phosphatase 180 H
Vital Signs:
Vital Signs
Temp Pulse Resp BP Pulse Ox
98.4 F 78 18 126/66 97
05/23/24 07:00 05/23/24 07:00 05/23/24 07:00 05/23/24 07:00 05/23/24 07:00
I&O
05/22/24 05/23/24 05/24/24
06:59 06:59 06:59
Intake Total 960 / 960 1620 / 1620
Output Total 450 / 450
Balance 510 / 510 1620 / 1620
--- NOTE | 2024-05-23 12:06 | W.DCSUMMARY ---
Discharge Summary
Discharge Data
Date of Admission: 05/19/24
Date of Discharge: 05/23/24
-
Pending Results: No
Hospital Course
79-year-old male with past medical history of BPH, essential hypertension, asthma, hypothyroidism came to the hospital with sepsis likely secondary to cirrhosis. Patient initially had high-grade fever which over time continue to improve. Cultures
were positive for Babesia. Patient was seen by infectious disease for hospitalization. Once diagnosis established, patient was restarted on azithromycin and atovaquone. Patient fever curve continue to improve throughout hospitalization. He also
initially had dysuria which over time improved. It was thought that dysuria was likely secondary to BPH. Urinalysis was negative for any UTI. Patient also had elevated liver function test but hepatitis C antibody was reactive however hep C PCR
came back negative. Patient instructed to follow-up with primary care provider for further evaluation. He also had acute thrombocytopenia and anemia which over time continue to improve. Once his symptoms continue to improve and was stable, he was
then discharged home with instructions to follow-up with all his physicians outpatient.
Discharge Plan
-
Patient Disposition: Home (Routine Discharge)
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
Dysuria secondary to BPH
Elevated LFTs
Hep C antibody reactive
Acute thrombocytopenia
Acute normocytic anemia
Diet: As tolerated
Activity: As tolerated
Driving Restrictions: As prior to admission
Blood Work: Repeat CBC with primary care provider next week
Activity Restrictions/Additional Instructions:
Your hepatitis C antibody was reactive. PCR however was negative. Please follow-up with your primary care provider.
Referrals:
Tati Werner PA-C [Family Provider] -
John Guthrie MD [Active] -
Ju Camarillo MD [Active] -
Prescriptions:
New
polyethylene glycol 3350 [HealthyLax] 17 gram Powder In Packet
17 g PO DAILY Qty: 0 0RF
azithromycin 500 mg tablet
500 mg PO DAILY 5 Days Qty: 5 0RF
triamcinolone acetonide 0.1 % Cream
1 applic topical TID Qty: 80 0RF
atovaquone 750 mg/5 mL Suspension
750 mg PO Q12 5 Days Qty: 50 0RF
Continued
diltiazem HCl 180 MG capsule,extended release 24hr
180 mg PO DAILY
saw palmetto 450 MG capsule
450 mg PO DAILY
sucralfate 1 GRAM tablet
1 g PO ACHSPRN PRN (Reason: stomach issues/when on antibiotics)
cyanocobalamin (vitamin B-12) 1,000 MCG tablet
1,000 mcg PO DAILY
acetaminophen [Tylenol Extra Strength] 500 MG tablet
1,000 mg PO Q6HPRN PRN (Reason: mild pain)
albuterol sulfate 1 PUFF HFA aerosol inhaler
2 puff inhalation R Q4HPRN PRN (Reason: sob/wheezing)
fluticasone propionate 1 SPRAY spray,suspension
2 spray intranasal DAILY
finasteride 5 MG tablet
5 mg PO DAILY
multivitamin with folic acid [Tab-A-Frank] 1 TABLET tablet
1 tab PO DAILY
pantoprazole 40 mg tablet,delayed release (DR/EC)
40 mg PO DAILY
levothyroxine [Tirosint] 88 mcg capsule
88 mcg PO DAILY@06
Patient Comments:
05/17/2024: Pt needs Brand Name, due to reactions with fillers, pt's spouse to bring in medication
Held
moxifloxacin 400 mg tablet
400 mg PO DAILY@1330
Hold Instructions: Restart once instructed by your physician
Discharge Orders:
Discharge Patient (As Directed); Ordered 05/23/24
Ordered By: Irvin Paulino
Discharge Date and Time
Discharge Date/Time: 05/23/24 16:16
Print Language: SINHALA
--- NOTE | 2024-05-23 12:42 | CM ---
Chart reviewed and patient is for discharge to home today no needs.
Plan; Home today no needs.
[2024-05-23 15:00] VITALS: BP 107/53
== END 2024-05-23 16:16 | disposition home or self-care (01) | DRG 872 ==
LOC: 4 WEST ACU 12:21
PROVIDERS: Hospitalist; Nurse Practitioner; ADMITTING PHYSICIAN Internal Medicine; ATTENDING PHYSICIAN Internal Medicine; CONSULT PHYSICIAN Internal Medicine Infectious Disease; CONSULT PHYSICIAN Otolaryngology; EMERGENCY PHYSICIAN Student in an Organized Health Care Education/Training Program; FAMILY PHYSICIAN Physician Assistant Medical
DX: A41.89 Other specified sepsis (principal); E87.1 Hypo-osmolality and hyponatremia; Q61.02 Congenital multiple renal cysts; B60.00 Babesiosis, unspecified; G93.40 Encephalopathy, unspecified; E44.1 Mild protein-calorie malnutrition; E03.9 Hypothyroidism, unspecified; N40.0 Benign prostatic hyperplasia without lower urinary tract symptoms; D69.6 Thrombocytopenia, unspecified; D64.9 Anemia, unspecified; R30.0 Dysuria; J01.00 Acute maxillary sinusitis, unspecified; K21.9 Gastro-esophageal reflux disease without esophagitis; I10 Essential (primary) hypertension; R30.9 Painful micturition, unspecified; R79.89 Other specified abnormal findings of blood chemistry; B19.20 Unspecified viral hepatitis C without hepatic coma; G89.29 Other chronic pain; M54.9 Dorsalgia, unspecified; J45.909 Unspecified asthma, uncomplicated; Z87.891 Personal history of nicotine dependence; Z87.11 Personal history of peptic ulcer disease; Z87.19 Personal history of other diseases of the digestive system; Z88.1 Allergy status to other antibiotic agents; Z88.5 Allergy status to narcotic agent; Z88.8 Allergy status to other drugs, medicaments and biological substances; Z68.27 Body mass index [BMI] 27.0-27.9, adult
CPT/HCPCS: 71045; 74177; 80053; 80143; 81003; 81015; 82248; 82977; 83605; 83615; 85025; 86705; 86706; 86709; 86803; 87015; 87040; 87070; 87207; 87340; 87522; 94640; 97162; 97166; 99285; Q9967

== ENCOUNTER → 2025-04-30 14:06 | Outpatient (REF) | payer MEDICARE, OTHER, SELFPAY | LOC: RAD 14:06 | PROVIDERS: ATTENDING PHYSICIAN Physician Assistant Medical | DX: R10.32 Left lower quadrant pain (principal) | CPT/HCPCS: 74177; Q9967 ==